=== PATIENT | male | born 2005 | race Two or more races ===

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

== ENCOUNTER 2024-08-06 14:31 | Emergency (ER) | payer SELFPAY ==
--- NOTE | ~2024-08-06 | XR_ITS ---
EXAMINATION: XR chest 1V portable 08/06/2024 14:53 INDICATION: Left chest pain PROCEDURE: AP portable chest COMPARISON: No prior studies for comparison. FINDINGS: The lungs are clear. The cardiomediastinal silhouette is within normal limits. There are no pleural effusions. There is no pneumothorax suspected. IMPRESSION: 1: NO ACUTE CARDIOPULMONARY DISEASE. Reviewed, dictated and finalized at location B.
[2024-08-06 14:34] VITALS: BP 127/80; PULSE 69; RESP 18; TEMP 36.8; O2SAT 96
--- NOTE | 2024-08-06 14:35 | ED_ITS ---
HPI - Arrhythmia/Palpitations General Chief Complaint: Arrhythmia/Palpitations Stated Complaint: palpatations Time Seen by Provider: 08/06/24 14:35 Source: patient Mode of arrival: ambulatory Limitations: no limitations History of Present Illness HPI narrative: 19-year-old male, nonsmoker with no past medical history presents to the ED with a 4 week history of -- left-sided chest pain which radiates to his neck, jaw, bilateral shoulders. The pain is not related to activity. It comes on spontaneously and resolved spontaneously. This is associated with -- shortness of breath no fever or chills. MD complaint: palpitations Onset (ago): week(s) ( Four weeks) Duration: intermittent Severity: moderate Context: occurred during rest Associated symptoms: denies other symptoms, chest pain and shortness of breath Related Data Home Medications ?Medication ?Instructions ?Recorded ?Confirmed ?Last Taken ?Type methylphenidate HCl 27 mg 27 mg PO DAILY 11/15/20 08/06/24 Unknown History tablet,extended release 24 hr famotidine 20 mg tablet mg 08/06/24 Unknown History Allergies Allergy/AdvReac Type Severity Reaction Status Date / Time lidocaine AdvReac Mild Rash Verified 08/06/24 14:34 Review of Systems 2 Review of Systems: All systems reviewed & are unremarkable except as noted in HPI and below Constitutional: Constitutional: Reports as per HPI and Reports no additional constitutional complaints Eyes: Eyes: Reports as per HPI and Reports no additional eye complaints ENT: Reports system reviewed and no additional complaints, except as documented and Reports as per HPI Cardiovascular: Cardiovascular: Reports as per HPI, Reports no additional cardiovascular complaints, Reports chest pain and Reports rapid heart rate Respiratory: Respiratory: Reports as per HPI, Reports no additional respiratory complaints and Reports dyspnea Gastrointestinal: Gastrointestinal: Reports as per HPI and Reports no additional gastrointestinal complaints Genitourinary: Genitourinary: Reports no additional male genitourinary complaints and Reports as per HPI Musculoskeletal: Musculoskeletal: Reports no additional musculoskeletal complaints and Reports as per HPI Integumentary/Breasts: Skin/Breast: Reports system reviewed and no additional complaints, except as docu and Reports as per HPI Neurologic: Reports system reviewed and no additional complaints, except as documented and Reports as per HPI Psychiatric: Psychiatric: Reports no additional psychiatric complaints and Reports as per HPI Endocrine: Endocrine: Reports no additional endocrine complaints and Reports as per HPI Hematologic/Lymphatic: Hematologic/Lymphatic: Reports no additional hematologic/lymphatic complaints and Reports as per HPI Allergic/Immunologic: Allergic/Immunologic: Reports no additional allergic/immunologic complaints and Reports as per HPI Exam 2 Narrative: vitals are stable Const: General: healthy appearing Orientation/consciousness: patient oriented x3 Limitations: no limitations HENMT: Head: normal to inspection Ears: external ears normal F alem/Nose/Sinus: Normal external nose present Face and sinus: normal facial exam Mouth: Yes Normal oral and palatal mucosa present Throat: posterior oropharynx normal Eyes: Conjunctivae: conjunctivae normal Pupils: Equal, round and reactive pupils present EOM: EOMs intact bilaterally Direct Ophthalmoscopy: no photophobia Neck: Neck: normal visual inspection, no lymphadenopathy and no meningeal signs Chest: Chest palpation & inspection: normal inspection of the chest Other: tenderness over the 3/4 costochondral junction Resp: Effort & Inspection: normal respiratory effort Auscultation: clear to auscultation bilaterally Cardio: Rate: regular rate Rhythm: regular rhythm GI: GI Palp: Yes Soft to palpation Auscultation: normal bowel sounds : General: Yes no CVA tenderness Back/Spine/Pelvis: Back: no CVA tenderness Skin: General skin exam: normal color Rashes: no rashes Wounds: no wounds Neuro: General: patient oriented x3, moves all extremities, no meningeal signs, no focal motor deficits and CN's II-XI intact bilaterally Speech: n ormal speech Extrem: General: normal to inspection and no clubbing, cyanosis or edema Psych: Mental Status: mental status grossly normal Affect: normal affect Attitude: cooperative Course Course Emergency Course: left chest pain-- unprovoked. Clinical examination revealed tenderness over the left 3/[address]ochond[address]. EKG revealed ST elevation in anteroseptal leads without any T-wave changes-- Early repolarization syndrome. Patient had normal D-dimer and a normal chest x-ray. Costochondritis anxiety Vital Signs Vital signs: Vital Signs Temperature 36.8 C 08/06/24 14:34 Pulse Rate 69 08/06/24 14:34 Respiratory Rate 18 08/06/24 14:34 Blood Pressure 127/80 08/06/24 14:34 Pulse Oximetry 96 08/06/24 14:34 Oxygen Delivery Room Air 08/06/24 14:34 Temperature 36.8 C 08/06/24 14:34 Pulse Rate 69 08/06/24 14:34 Respiratory Rate 18 08/06/24 14:34 Blood Pressure 127/80 08/06/24 14:34 Pulse Oximetry 96 08/06/24 14:34 Oxygen Delivery Room Air 08/06/24 14:34 MDM - Arrhythmia/Palpitations MDM Narrative Medical decision making narrative: costochondritis anxiety Differential Diagnosis Differential diagnosis: Likely palpitations and sinus tachycardia Lab Data Attestation: I reviewed the patient's lab results. 08/06/24 14:54 08/06/24 14:54 Labs: Lab Results 08/06/24 Range/Units 14:54 WBC 6.2 (4.8-10.8) K/mm3 RBC 5.09 (4.70-6.10) M/mm3 Hgb 14.7 (14.0-18.0) g/dL Hct 42.4 (40.0-54.0) % MCV 83.3 (78.0-102.0) fL MCH 28.9 (27.0-31.0) pg MCHC 34.7 (32-36) g/dL RDW 12.2 (11.6-14.4) % Plt Count 270 (150-420) K/mm3 MPV 9.3 (8.7-11.0) fl Immature Gran % (Auto) 0.2 H (0.0-0.0) % Neut % (Auto) 62.8 (50.0-70.0) % Lymph % (Auto) 20.7 (18.0-42.0) % [place] % (Auto) 10.5 (2.0-11.0) % Eos % (Auto) 5.0 (1.0-6.0) % Baso % (Auto) 0.8 (0.0-1.0) % Lymph # (Auto) 1.28 (1.10-4.50) K/mm3 [place] # (Auto) 0.65 (0.10-0.90) K/mm3 Eos # (Auto) 0.31 (0.02-0.50) K/mm3 Baso # (Auto) 0.05 (0.00-0.10) K/mm3 Abs Immat Gran (auto) 0.01 H (0.00-0.00) K/mm3 Absolute Neuts (auto) 3.87 (1.70-7.20) K/mm3 Absolute Nucleated RBC 0.00 (0.00-0.00) K/mm3 Nucleated RBC % 0.0 (0-0.0) % D-Dimer 0.19 (0.19-0.50) mg/L Sodium 139 (137-145) mmol/L Potassium 3.8 (3.4-5.0) mmol/L Chloride 106 (98-107) mmol/L Carbon Dioxide 24 (22-30) mmol/L Anion Gap 9 (4-12) mmol/L BUN 6 L (9-20) mg/dL Creatinine 0.77 (0.7-1.3) mg/dL Estim Creat Clear Calc 156 ml/min Estimated GFR > 60 (59 - ) Glucose 78 (65-110) mg/dL Calculated Osmolality 284 L (285-295) mOsm/kg Lactic Acid Pending Calcium 9.1 (8.4-10.2) mg/dL Total Bilirubin 0.8 (0.2-1.3) mg/dL AST 26 (17-59) U/L ALT 18 (6-50) U/L Alkaline Phosphatase 50 (38-126) U/L Troponin I < 0.012 (0.000-0.034) ng/mL Total Protein 6.9 (6.3-8.2) g/dL Albumin 5.0 (3.5-5.1) g/dL ECG Data EKG #1: ECG completion date: 08/06/24 ECG completion time: 14:57 Interpretation: Normal sinus rhythm. Normal axis. ST elevation in anteroseptal leads possibly secondary to early repolarization syndrome Discharge Plan Discharge Clinical Impression: Anxiety, Costochondritis Patient Disposition: Home Condition: Stable Instructions: Antibiotic Form, Costochondritis (ED), Anxiety (ED) Patient Language: Lithuanian Prescriptions: No Action famotidine 20 mg tablet methylphenidate HCl 27 mg tablet extended release 24hr 27 mg PO DAILY fluconazole 150 mg tablet 150 mg PO WEEKLY Qty: 2 1RF Rx Instructions: as a single dose Follow-up/Referrals: UNKNOWN,DOCTOR [Non-Staff] - Time of Disposition: 15:49
--- NOTE | 2024-08-06 14:45 | ECG_ITS ---
Test Date: 2024-08-06 14:57:22 Measurements Intervals [place] Rate: 69 P: 36 OK: 143 QRS: 31 QRSD: 101 T: 41 QT: 355 QTc: 383 Interpretive Statements SINUS RHYTHM WITH SINUS ARRHYTHMIA INCOMPLETE RIGHT BUNDLE BRANCH BLOCK ST ELEVATION IN DIFFUSE LEADS, PROBABLY EARLY REPOLARIZATION BASELINE ARTIFACT- I, II, III BORDERLINE ECG No previous ECG available for comparison Electronically Signed On 08-06-2024 15:21:28 CDT by Melvin Bates D.O.
[2024-08-06 14:59] LABS: Basophils Absolute Auto 0.05 K/mm3 (0.00-0.10); Basophils Percent Auto 0.8 % (0.0-1.0); Eosinophils Absolute Auto 0.31 K/mm3 (0.02-0.50); Hematocrit 42.4 % (40.0-54.0); Hemoglobin 14.7 g/dL (14.0-18.0); Immature Granulocyte Absolute 0.01 K/mm3 (0.00-0.00); Immature Granulocyte Percent A 0.2 % (0.0-0.0); Lymphocytes Absolute Auto 1.28 K/mm3 (1.10-4.50); Lymphocytes Percent Auto 20.7 % (18.0-42.0); Mean Corpuscular HGB Conc 34.7 g/dL (32-36); Mean Corpuscular Hemoglobin 28.9 pg (27.0-31.0); Mean Corpuscular Volume 83.3 fL (78.0-102.0); Mean Platelet Volume 9.3 fl (8.7-11.0); Monocytes Absolute Auto 0.65 K/mm3 (0.10-0.90); Monocytes Percent Auto 10.5 % (2.0-11.0); Neutrophils Absolute Auto 3.87 K/mm3 (1.70-7.20); Neutrophils Percent Auto 62.8 % (50.0-70.0); Platelet Count Result 270 K/mm3 (150-420); Red Blood Count 5.09 M/mm3 (4.70-6.10); Red Cell Distribution Width 12.2 % (11.6-14.4); White Blood Count 6.2 K/mm3 (4.8-10.8)
[2024-08-06 15:13] LABS: D Dimer 0.19 mg/L (0.19-0.50)
[2024-08-06 15:32] LABS: Alanine Aminotransferase 18 U/L (6-50); Alkaline Phosphatase 50 U/L (38-126); Anion Gap 9 mmol/L (4-12); Aspartate Amino Transferase 26 U/L (17-59); Bilirubin,Total 0.8 mg/dL (0.2-1.3); Blood Urea Nitrogen 6 mg/dL (9-20); Calcium 9.1 mg/dL (8.4-10.2); Carbon Dioxide 24 mmol/L (22-30); Chloride 106 mmol/L (98-107); Estimated CRCL calculation 156 ml/min; Estimated Glomerular Filt Rate > 60; Glucose 78 mg/dL (65-110); Osmolality Calculated 284 mOsm/kg (285-295); Potassium 3.8 mmol/L (3.4-5.0); Sodium 139 mmol/L (137-145); Total Protein 6.9 g/dL (6.3-8.2)
[2024-08-06 15:44] LABS: Troponin I < 0.012 ng/mL (0.000-0.034)
[2024-08-06 16:04] VITALS: BP 120/70; PULSE 63; RESP 16; TEMP 37.6; O2SAT 96
--- NOTE | 2024-08-06 16:04 | PC.NURSE ---
Gel splint applied to right ankle
--- OUTSIDE RECORDS SUMMARY | 2024-08-06 17:15 | XMS_ITS | Referral Summary ---
Author Organization [place] [id number] [facility] Address [address] [place] [address] Care Team Providers Care Agency Legal Counsel Name Role Phone Unknown, Notinfile Primary Care Provider Unavail able Encounters Date Type Department Care Team Description 07/31/2024 Documentation [facility] Social Work [address] [place] [id number] Isela Rubi 07/29/2024 2:39 PM CDT - 07/29/2024 3:47 PM CDT Emergency [address] [address] Cervical radiculopathy (Primary Dx); Left arm pain; Paresthesia Discharge Disposition: Discharge to home or self care 07/26/2024 2:48 PM CDT - 07/26/2024 3:39 PM CDT Emergency [address] [address] Musculoskeletal pain (Primary Dx) Discharge Disposition: Discharge to home or self care 07/23/2024 11:16 AM CDT - 07/23/2024 4:24 PM CDT Emergency [address] [address] Gastroesophageal reflux disease without esophagitis (Primary Dx); Chest wall pain Discharge Disposition: Discharge to home or self care 07/17/2024 7:50 PM CDT - 07/17/2024 8:12 PM CDT Emergency [address] [address] Upper abdominal pain (Primary Dx) Discharge Disposition: Discharge to home or self care 07/11/2024 1:43 PM CDT - 07/11/2024 2:19 PM CDT Emergency [address] [address] Ariel Hugo MD Chest pain, unspecified type (Primary Dx) Discharge Disposition: Discharge to home or self care from Last 3 Months Allergies No known active allergies Medications methylphenidat e LA (RITALIN LA) 20 mg 24 hr capsule Take 20 mg by mouth every morning Active aluminum-magne sium hydroxide-olivier thicone (MAALOX MAX) suspension 400-400-40 mg/5 mL Take 10 mL by mouth every 6 (six) hours as needed for indigestion or heartburn 355 mL 07/18/19 25 Active famotidine (PEPCID) 20 mg tablet Take 1 tablet (20 mg total) by mouth 2 (two) times a day 30 tablet 07/24/19 25 Active celecoxib (CeleBREX) 100 mg capsule Take 1 capsule (100 mg total) by mouth 2 (two) times a day 60 capsule 07/27/19 25 025 Active celecoxib (CeleBREX) 100 mg capsule Take 1 capsule (100 mg total) by mouth 2 (two) times a day 60 capsule 07/27/19 25 025 Discontinued Active Problems Problem Noted Date Diagnosed Date Warts 09/25/2011 Overview (03/18/2019): onset summer 2010; 2 lesions, limited to forehead Social History Tobacco Use Types Packs/Day Years Used Date Smoking Tobacco: Never Alcohol Use Standard Drinks/Week Comments Never 0 (1 standard drink = 0.6 oz pur e alcohol) AUDIT-C Answer Date Recorded Frequency of Alcohol Consumption Never 04/21/2019 Average Number of Drinks Not on file 020 Frequency of Binge Drinking Not on file 03/30 Personal Safety Answer Date Recorded Have you ever been in or are you currently in a harmful physical or emotional relationship or is someone making you feel afraid or unsafe? Denies 07/29/2024 Sex and Gender Information Value Date Recorded Sex Assigned at Not on file Legal Sex Male 8:48 AM CDT Gender Identity Not on file Sexual Orientation Not on file Last Filed Vital Signs Vital Sign Reading Time Taken Comments Blood Pressure 130/62 07/29/2024 3:43 PM CDT Pulse 60 07/29/2024 3:43 PM CDT Temperature 36.9 C (98.4 F) 07/29/2024 11:41 AM CDT Respiratory Rate 16 07/29/2024 3:43 PM CDT Oxygen Saturation 100% 07/29/2024 3:43 PM CDT Inhaled Oxygen Concentration - - Weight 104.8 kg (231 lb) 07/29/2024 11:54 AM CDT Height 175.3 cm (5' 9) 07/17/2023 1:27 PM CDT Body Mass Index 34.11 07/17/2023 1:27 PM CDT Plan of Treatment Not on file Procedures Procedure Name Priority Date/Time Associated Diagnosis Comments XR SPINE CERVICAL COMPLETE 4 OR 5 VW ED 07/29/2024 2:49 PM CDT EGFR STAT 07/29/2024 1:49 PM CDT DIFFERENTIAL AUTO STAT 07/29/2024 1:4 9 PM CDT COMPREHENSIVE METABOLIC PANEL STAT 07/29/2024 1:49 PM CDT CBC WITH AUTO DIFFERENTIAL STAT 07/29/2024 1:49 PM CDT XR SHOULDER LEFT 2 OR MORE VIEWS ED 07/29/2024 12:44 PM CDT ECG 12-LEAD STAT 07/26/2024 2:10 PM CDT EGFR STAT 07/26/2024 2:08 PM CDT DIFFERENTIAL AUTO STAT 07/26/2024 2:0 8 PM CDT COMPREHENSIVE METABOLIC PANEL STAT 07/26/2024 2:08 PM CDT CBC WITH AUTO DIFFERENTIAL STAT 07/26/2024 2:08 PM CDT TROPONIN T HIGH-SENSITIVITY 2-HOUR Timed 07/23/2024 2:31 PM CDT XR CHEST 1 VIEW ED 07/23/2024 12:44 PM CDT EGFR STAT 07/23/2024 12:28 PM CDT DIFFERENTIAL AUTO STAT 07/23/2024 12: 28 PM CDT LIPASE STAT 07/23/2024 12:28 PM CDT TROPONIN T HIGH-SENSITIVITY SERIES (BASELINE, 2HR, 4HR, 6HR) STAT 07/23/2024 12:28 PM CDT CBC WITH AUTO DIFFERENTIAL STAT 07/23/2024 12:28 PM CDT COMPREHENSIVE METABOLIC PANEL STAT 07/23/2024 12:28 PM CDT ECG 12-LEAD STAT 07/23/2024 12:22 PM CDT TROPONIN T HIGH-SENSITIVITY 2-HOUR Timed 07/17/2024 7:27 PM CDT XR CHEST 1 VIEW ED 07/17/2024 5:31 PM CDT EGFR STAT 07/17/2024 4:49 PM CDT DIFFERENTIAL AUTO STAT 07/17/2024 4:4 9 PM CDT TROPONIN T HIGH-SENSITIVITY SERIES (BASELINE, 2HR, 4HR, 6HR) STAT 07/17/2024 4:49 PM CDT COMPREHENSIVE METABOLIC PANEL STAT 07/17/2024 4:49 PM CDT CBC WITH AUTO DIFFERENTIAL STAT 07/17/2024 4:49 PM CDT ECG 12-LEAD STAT 07/17/2024 4:40 PM CDT XR CHEST 1 VIEW ED 07/11/2024 12:27 PM CDT EGFR STAT 07/11/2024 12:15 PM CDT DIFFERENTIAL AUTO STAT 07/11/2024 12: 15 PM CDT TROPONIN T HIGH-SENSITIVITY SERIES (BASELINE, 2HR, 4HR, 6HR) STAT 07/11/2024 12:15 PM CDT COMPREHENSIVE METABOLIC PANEL STAT 07/11/2024 12:15 PM CDT CBC WITH AUTO DIFFERENTIAL STAT 07/11/2024 12:15 PM CDT ECG 12-LEAD STAT 07/11/2024 12:02 PM CDT from Last 3 Months Results * XR Spine Cervical Complete 4 or 5 Views (07/29/2024 2:49 PM CDT) Anatomical Region Laterality Modality Spine N/A Computed Radiogr aphy 07/29/2024 3:18 PM CDT Narrative 07/29/2024 3:20 PM CDT EXAM DESCRIPTION: XR SPINE CERVICAL COMPLETE 4 OR 5 VW REASON FOR STUDY: neck pain Pt with neck pain t hat radiates to a lump under the skin on his anterior Chest wall, denies trauma TECHNIQUE: 5 radiographic view(s) of the cervical spine. COMPARISON: 07/17/2023 FINDINGS: ALIGNMENT: Anatomic. VERTEBRAE: Vertebral bodies of normal height. DISCS: Disc height well-maintained. SOFT TISSUES: Within normal limits. IMPRESSION: No acute spinal abnormality. THIS IS AN ELECTRONICALLY VERIFIED FINAL REPORT 07/29/2024 3:20 PM - Electronically signed by Shawn Dickey M.D. MM T: Report ID: [id number] Reading Location: [id number] Procedure Note Shawn Dickey MD - 07/29/2024 EXAM DESCRIPTION: XR SPINE CERVICAL COMPLETE 4 OR 5 VW REASON FOR STUDY: neck pain Pt with neck pain t hat radiates to a lump under the skin on his anterior Chest wall, denies trauma TECHNIQUE: 5 radiographic view(s) of the cervical spine. COMPARISON: 07/17/2023 FINDINGS: ALIGNMENT: Anatomic. VERTEBRAE: Vertebral bodies of normal height. DISCS: Disc height well-maintained. SOFT TISSUES: Within normal limits. IMPRESSION: No acute spinal abnormality. THIS IS AN ELECTRONICALLY VERIFIED FINAL REPORT 07/29/2024 3:20 PM - Electronically signed by Shawn Dickey M.D. MM T: Report ID: [id number] Reading Location: [id number] Maxim [facility] IMG XR PROCEDURES Final Resu lt * eGFR (07/29/2024 1:49 PM CDT) eGFR >90 >=60 mL/min/1. 73 m2 Comment: Interpretive Data Reference Interval Normal >/= 90 mL/min/1.73m2 Mildly decreased* 60 - 89 mL/min/1.73m2 Mildly to moderately decreased 45 - 59 mL/min/1.73m2 Moderately to severely decreased 30 - 44 mL/min/1.73m2 Severely decreased 15 - 29 mL/min/1.73m2 Kidney Failure < 15 mL/min/1.73m2 *Relative to young adult level Estimated glomerular filtration rate is determined by the 2020 CKD-EPI equation recommended by the National Kidney Foundation (A Unifying Approach to GFR Estimation: Recommendations of the NKF-ASK Task Force on Reassessing the Inclusion of Race in Diagnosing Kidney Disease, JASN 202). The CKD-EPI equation should not be used for patients with unstable renal function and has not been validated in children and those over 70. Current interpretive data was last reviewed 2020. Blood 07/29/2024 1:49 PM CDT 07/29/2024 1:53 PM CDT us Bert ASCENCIO LAB BLOOD ORDERABL ES Final Result [facility] [address] [facility] Department [place] [address] * Differential, auto (07/29/2024 1:49 PM CDT) Neutrophil abs 4.26 1.50 - 6.50 K/cumm Imm gran abs 0.01 0.00 - 0.10 K/cumm [facility] Lymphocyte abs 1.56 0.80 - 3.30 K/cumm [facility] Monocyte abs 0.63 0.20 - 0.80 K/cumm [facility] Eosinophil abs 0.16 0.00 - 0.50 K/cumm [facility] Basophil abs 0.02 0.00 - 0.10 K/cumm [facility] Neutrophil pct 64.1 % [facility] Comment: Interpretive Data Percent cell count reference ranges are not reported, since discordance with absolute values may lead to misinterpretation of CBC data. Current Interpretive Data was last revised on 2017. Imm gran pct 0.2 % [facility] Comment: Interpretive Data Percent cell count reference ranges are not reported, since discordance with absolute values may lead to misinterpretation of CBC data. Current Interpretive Data was last revised on 2017. Lymphocyte pct 23.5 % [facility] Comment: Interpretive Data Percent cell count reference ranges are not reported, since discordance with absolute values may lead to misinterpretation of CBC data. Current Interpretive Data was last revised on 2017. Monocyte pct 9.5 % [facility] Comment: Interpretive Data Percent cell count reference ranges are not reported, since discordance with absolute values may lead to misinterpretation of CBC data. Current Interpretive Data was last revised on 2017. Eosinophil pct 2.4 % [facility] Comment: Interpretive Data Percent cell count reference ranges are not reported, since discordance with absolute values may lead to misinterpretation of CBC data. Current Interpretive Data was last revised on 2017. Basophil pct 0.3 % [facility] Comment: Interpretive Data Percent cell count reference ranges are not reported, since discordance with absolute values may lead to misinterpretation of CBC data. Current Interpretive Data was last revised on 2017. Blood 07/29/2024 1:49 PM CDT 07/29/2024 1:53 PM CDT [facility]LOOD ORDERABL ES Final Result Performing Organization Address City/[facility]/ZIP Co de Phone Number [facility] [address] [place] [employer] [place] [address] * CBC with auto differential (07/29/2024 1:49 PM CDT) WBC 6.64 3.80 - 9.90 K/cumm Hgb 14.5 13.0 - 17.5 g/dL [facility] Hct 41.5 38.9 - 50.3 % [facility] Plt 296 150 - 400 K/cumm [facility] MPV 9.4 9.1 - 12.3 fL [facility] RBC 4.86 4.30 - 5.80 M/cumm [facility] MCV 85.4 81.3 - 96.4 fL [facility] MCH 29.8 27.1 - 33.3 pg [facility] MCHC 34.9 32.3 - 35.7 g/dL [facility] RDW CV 12.5 11.1 - 14.9 % [facility] RDW SD 38.7 35.7 - 48.1 fL [facility] NRBC abs 0.00 0.00 - 0.01 K/cumm [facility] Blood 07/29/2024 1:49 PM CDT 07/29/2024 1:53 PM CDT [facility] Tolulade Adesida PA LAB BLOOD ORDERABL ES Final Result Performing Organization Address [facility] Co de Phone Number [facility] [place] [employer] [place] [address] * Comprehensive metabolic panel (07/29/2024 1:49 PM CDT) Sodium 137 135 - 145 mmol/L Potassium, pl 4.2 3.3 - 4.9 mmol/L [facility] Chloride 103 97 - 110 mmol/L [facility] CO2 23 22 - 32 mmol/L [facility] Anion gap 11 2 - 15 mmol/L [facility] BUN 7 6 - 25 mg/dL [facility] Creatinine 0.89 0.80 - 1.30 mg/dL [facility] Glucose 87 70 - 199 mg/dL [facility] Comment: Interpretive Data Fasting glucose >/= 126 mg/dl is diagnostic for diabetes. Fasting is defined as no caloric intake for at least 8 hours. Fasting glucose between 100 mg/dl to 125 mg/dl is diagnostic of prediabetes. In a patient with classic symptoms of hyperglycemia or hyperglycemic crisis, a random glucose >/= 200 mg/dl is diagnostic for diabetes. In the absence of unequivocal hyperglycemia, results should be confirmed by repeat testing. The classification and Diagnosis of Diabetes Diabetes Care 2021; 46: S19-S40. Current interpretive data was last revised 2022. Calcium 9.5 8.5 - 10.3 mg/dL [facility] Bilirubin, total 0.5 0.1 - 1.2 mg/dL [facility] Protein, pl 7.2 6.5 - 8.5 g/dL [facility] Albumin 4.8 3.5 - 5.0 g/dL [facility] Alk phos 50 40 - 130 Units/L [facility] ALT 22 7 - 55 Units/L [facility] AST 20 10 - 50 Units/L [facility] Blood 07/29/2024 1:49 PM CDT 07/29/2024 1:53 PM CDT us Bert ASCENCIO LAB BLOOD ORDERABL ES Final Result [facility] [address] [facility] Department [place] [address] * XR Shoulder Left 2 or More Views (07/29/2024 12:44 PM CDT) Anatomical Region Laterality Modality Upper Extremities, Shoulder Left Comp uted Radiography 07/29/2024 1:16 PM CDT Narrative 07/29/2024 1:18 PM CDT EXAM DESCRIPTION: XR SHOULDER LEFT 2 OR MORE VIEWS REASON FOR STUDY: Pain, Upper Extremity Injury or Trauma Pt has been seen within the ED multiple times the past couple weeks per pt with c/o intermittent VIDHI chest pain. Pt is now c/o the pain moving to my shoulder. Pt is c/o decreased strength to LUE x2 days. 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 Pt is currently denying CP or SOB. Pt friend is requesting for pt to be placed on abx for an infection. Pt is stating body aches from my feet up into my body. TECHNIQUE: 4 radiographic view(s) of the left shoulder . COMPARISON: Chest radiograph dated 07/23/2024. FINDINGS: BONES/JOINTS: There is no acute fracture, malalignment or osseous abnormality. Joint spaces are preserved. The visualized left ribs are intact. The left lung is clear. SOFT TISSUES: No focal soft tissue abnormality. IMPRESSION: No acute osseous abnormality within the left shoulder. THIS IS AN ELECTRONICALLY VERIFIED FINAL REPORT 07/29/2024 1:18 PM - Electronically signed by Juli Roca M.D. TW T: Report ID: [id number] Reading Location: [id number] Procedure Note Juli Roca MD - 07/29/2024 EXAM DESCRIPTION: XR SHOULDER LEFT 2 OR MORE VIEWS REASON FOR STUDY: Pain, Upper Extremity Injury or Trauma Pt has been seen within the ED multiple times the past couple weeks per pt with c/o intermittent VIDHI chest pain. Pt is now c/o the pain moving giancarlo shoulder. Pt is c/o decreased strength to LUE x2 days. Pt gripstrength is weakness on the L. Pt is currently denying CP or SOB. Pt friend is requesting for pt to be placed on abx for an infection. Pt is stating body aches from my feet up into my body. TECHNIQUE: 4 radiographic view(s) of the left shoulder . COMPARISON: Chest radiograph dated 07/23/2024. FINDINGS: BONES/JOINTS: There is no acute fracture, malalignment orosseous abnormality. Joint spaces are preserved. The visualized left ribs areintact. The left lung is clear. SOFT TISSUES: No focal soft tissue abnormality. IMPRESSION: No acute osseous abnormality within the left shoulder. THIS IS AN ELECTRONICALLY VERIFIED FINAL REPORT 07/29/2024 1:18 PM - Electronically signed by Juli Roca M.D. TW T: Report ID: [id number] Reading Location: [place] [address] [facility] LOPEZ IMG XR PROCEDURES Final Result * ECG 12 lead (07/26/2024 2:10 PM CDT) Ventricular Rate EKG/Min 66 BPM [facility] Atrial Rate 66 BPM [facility] ID-Interval (MSEC) 166 ms [facility] QRS-Interval (MSEC) 100 ms [facility] QT-Interval (MSEC) 370 ms [facility] QTc 387 ms [facility] P [place] 65 degrees [facility] R [place] 26 degrees [facility] T [place] 37 degrees [facility] Diagnosis Normal sinus rhythm Normal ECG When compared with ECG of 23-JUL-2024 12:22, No significant change was found Confirmed by SULTAN MOLINA M.D. ([id number]) on 07/28/2024 5:55:23 PM [facility] 07/26/2024 2:10 PM CDT 07/28/2024 5:55 PM CDT Ari Leslie MD ECG ORDERABLES Final Result [facility] * eGFR (07/26/2024 2:08 PM CDT) eGFR >90 >=60 mL/min/1. 73 m2 Comment: Interpretive Data Reference Interval Normal >/= 90 mL/min/1.73m2 Mildly decreased* 60 - 89 mL/min/1.73m2 Mildly to moderately decreased 45 - 59 mL/min/1.73m2 Moderately to severely decreased 30 - 44 mL/min/1.73m2 Severely decreased 15 - 29 mL/min/1.73m2 Kidney Failure < 15 mL/min/1.73m2 *Relative to young adult level Estimated glomerular filtration rate is determined by the 2020 CKD-EPI equation recommended by the National Kidney Foundation (A Unifying Approach to GFR Estimation: Recommendations of the NKF-ASK Task Force on Reassessing the Inclusion of Race in Diagnosing Kidney Disease, JASN 202). The CKD-EPI equation should not be used for patients with unstable renal function and has not been validated in children and those over 70. Current interpretive data was last reviewed 2020. Blood 07/26/2024 2:08 PM CDT 07/26/2024 2:10 PM CDT us Ari Leslie MD LAB BLOOD ORDERABLES Final Resul t [facility] [address] [facility] Department [place] [address] * Differential, auto (07/26/2024 2:08 PM CDT) Neutrophil abs 4.97 1.50 - 6.50 K/cumm Imm gran abs 0.02 0.00 - 0.10 K/cumm [facility] Lymphocyte abs 1.80 0.80 - 3.30 K/cumm [facility] Monocyte abs 0.65 0.20 - 0.80 K/cumm [facility] Eosinophil abs 0.14 0.00 - 0.50 K/cumm [facility] Basophil abs 0.04 0.00 - 0.10 K/cumm [facility] Neutrophil pct 65.3 % [facility] Comment: Interpretive Data Percent cell count reference ranges are not reported, since discordance with absolute values may lead to misinterpretation of CBC data. Current Interpretive Data was last revised on 2017. Imm gran pct 0.3 % [facility] Comment: Interpretive Data Percent cell count reference ranges are not reported, since discordance with absolute values may lead to misinterpretation of CBC data. Current Interpretive Data was last revised on 2017. Lymphocyte pct 23.6 % [facility] Comment: Interpretive Data Percent cell count reference ranges are not reported, since discordance with absolute values may lead to misinterpretation of CBC data. Current Interpretive Data was last revised on 2017. Monocyte pct 8.5 % [facility] Comment: Interpretive Data Percent cell count reference ranges are not reported, since discordance with absolute values may lead to misinterpretation of CBC data. Current Interpretive Data was last revised on 2017. Eosinophil pct 1.8 % [facility] Comment: Interpretive Data Percent cell count reference ranges are not reported, since discordance with absolute values may lead to misinterpretation of CBC data. Current Interpretive Data was last revised on 2017. Basophil pct 0.5 % [facility] Comment: Interpretive Data Percent cell count reference ranges are not reported, since discordance with absolute values may lead to misinterpretation of CBC data. Current Interpretive Data was last revised on 2017. Blood 07/26/2024 2:08 PM CDT 07/26/2024 2:10 PM CDT us Ari Leslie MD LAB BLOOD ORDERABLES Final Resul t [place] [id number] [facility] Department [place] [address] * (ABNORMAL) CBC with auto differential (07/26/2024 2:08 PM CDT) WBC 7.62 3.80 - 9.90 K/cumm Hgb 14.0 13.0 - 17.5 g/dL [facility] Hct 39.5 38.9 - 50.3 % [facility] Plt 304 150 - 400 K/cumm [facility] MPV 9.0(L) 9.1 - 12.3 fL [facility] RBC 4.84 4.30 - 5.80 M/cumm [facility] MCV 81.6 81.3 - 96.4 fL [facility] MCH 28.9 27.1 - 33.3 pg [facility] MCHC 35.4 32.3 - 35.7 g/dL [facility] RDW CV 12.2 11.1 - 14.9 % [facility] RDW SD 35.8 35.7 - 48.1 fL [facility] NRBC abs 0.00 0.00 - 0.01 K/cumm [facility] Blood Venous blood specimen / Unknown 07/26/2024 2:08 PM CDT 07/26/2024 2:10 PM CDT us Ari Leslie MD LAB BLOOD ORDERABLES Final Resul t [facility] [address] [facility] Department [place] [address] * Comprehensive metabolic panel (07/26/2024 2:08 PM CDT) Sodium 136 135 - 145 mmol/L Potassium, pl 3.6 3.3 - 4.9 mmol/L [facility] Chloride 101 97 - 110 mmol/L [facility] CO2 22 22 - 32 mmol/L [facility] Anion gap 13 2 - 15 mmol/L [facility] BUN 11 6 - 25 mg/dL [facility] Creatinine 0.88 0.80 - 1.30 mg/dL [facility] Glucose 106 70 - 199 mg/dL [facility] Comment: Interpretive Data Fasting glucose >/= 126 mg/dl is diagnostic for diabetes. Fasting is defined as no caloric intake for at least 8 hours. Fasting glucose between 100 mg/dl to 125 mg/dl is diagnostic of prediabetes. In a patient with classic symptoms of hyperglycemia or hyperglycemic crisis, a random glucose >/= 200 mg/dl is diagnostic for diabetes. In the absence of unequivocal hyperglycemia, results should be confirmed by repeat testing. The classification and Diagnosis of Diabetes Diabetes Care 202; 46: S19-S40. Current interpretive data was last revised 2022. Calcium 9.6 8.5 - 10.3 mg/dL [facility] Bilirubin, total 0.5 0.1 - 1.2 mg/dL [facility] Protein, pl 7.2 6.5 - 8.5 g/dL [facility] Albumin 4.7 3.5 - 5.0 g/dL [facility] Alk phos 46 40 - 130 Units/L [facility] ALT 19 7 - 55 Units/L [facility] AST 19 10 - 50 Units/L [facility] Blood 07/26/2024 2:08 PM CDT 07/26/2024 2:10 PM CDT us Ari Leslie MD LAB BLOOD ORDERABLES Final Resul t Performing Organization Address [facility] Co de Phone Number BABAK [facility]0 [facility] [place] [employer] [place] [address] * Troponin T high-sensitivity 2-hour (07/23/2024 2:31 PM CDT) Trop T hs See Comment <=22 Comment: Credited due to hemolysis; if immediate recollection is needed, enter an order for a standalone troponin. Do not reorder the troponin series. Informed RN: [id number] 07/23/24 at 1503 by [id number] Interpretive Data For further hscTnT resources including the diagnostic algorithm and an aid in interpretation, copy and paste this link: [email or web address].testcatalog.org/[email or web address] Current Interpretive Data last revised 2020. Trop T hs interp See Comment [facility] Comment:Credited due to hemo lysis; if immediate recollection is needed, enter an order for a standalone troponin. Do not reorder the troponin series. Informed RN: [id number] 07/23/24 at 1503 by [id number] Blood 07/23/2024 2:31 PM CDT 07/23/2024 2:32 PM CDT Jonelle [facility] LAB BLOOD ORDERABLES Final Re sult Performing Organization Address [facility] Co de Phone Number [place] [id number] [facility] [place] [employer] [place] [address] * XR Chest 1 Vw Portable (07/23/2024 12:44 PM CDT) Anatomical Region Laterality Modality Body, Chest N/A Computed Radiogr aphy 07/23/2024 2:54 PM CDT Narrative 07/23/2024 2:56 PM CDT EXAM DESCRIPTION: XR CHEST 1 VIEW REASON FOR STUDY: pain Pt states he has a lump on his lt anterior chest wall that popped up about 3 days ago TECHNIQUE: Single frontal radiographic view(s) of the chest. COMPARISON: 07/17/2024 FINDINGS: The heart, mediastinum, and pulmonary vasculature are grossly stable. There is no definite evidence of a pneumothorax. There is no definite evidence of a focal consolidation or pleural effusion. The osseous structures are acutely grossly stable. IMPRESSION: No acute cardiopulmonary abnormality. THIS IS AN ELECTRONICALLY VERIFIED FINAL REPORT 07/23/2024 2:56 PM - Electronically signed by Jossie Jimenez D.O. PS T: Report ID: [id number] Reading Location: [id number] Procedure Note Jossie Jimenez, DO - 07/23/2024 EXAM DESCRIPTION: XR CHEST 1 VIEW REASON FOR STUDY: pain Pt states he has a lump on his lt anterior chest wall that popped up about3 days ago TECHNIQUE: Single frontal radiographic view(s) of the chest. COMPARISON: 07/17/2024 FINDINGS: The heart, mediastinum, and pulmonary vasculature are grossly stable. There is no definite evidence of a pneumothorax. There is no definite evidence of a focal consolidation or pleural effusion. The osseous structures are acutely grossly stable. IMPRESSION: No acute cardiopulmonary abnormality. THIS IS AN ELECTRONICALLY VERIFIED FINAL REPORT 07/23/2024 2:56 PM - Electronically signed by Jossie Jimenez D.O. PS T: Report ID: [id number] Reading Location: [id number] us Jonelle ASCENCIO IMG XR PROCEDURES Final Resul t * Troponin T high-sensitivity series (baseline, 2hr, 4hr, 6hr) (07/23/2024 12:28 PM CDT) Trop T hs 15 <=22 ng/L Comment: Interpretive Data For further hscTnT resources including the diagnostic algorithm and an aid in interpretation, copy and paste this link: https://nrl.testcatalog.org/show/hsTrop Current Interpretive Data last revised 2020. Blood 07/23/2024 12:2 8 PM CDT 07/23/2024 12:32 PM CDT us Jonelle [facility] LAB BLOOD ORDERABLES Final Re sult Performing Organization Address [facility] Co de Phone Number BABAK [address] [address] * eGFR (07/23/2024 12:28 PM CDT) Pathologist [facility] eGFR >90 >=60 mL/min/1. 73 m2 Comment: Interpretive Data Reference Interval Normal >/= 90 mL/min/1.73m2 Mildly decreased* 60 - 89 mL/min/1.73m2 Mildly to moderately decreased 45 - 59 mL/min/1.73m2 Moderately to severely decreased 30 - 44 mL/min/1.73m2 Severely decreased 15 - 29 mL/min/1.73m2 Kidney Failure < 15 mL/min/1.73m2 *Relative to young adult level Estimated glomerular filtration rate is determined by the 2020 CKD-EPI equation recommended by the National Kidney Foundation (A Unifying Approach to GFR Estimation: Recommendations of the NKF-ASK Task Force on Reassessing the Inclusion of Race in Diagnosing Kidney Disease, JASN 2020). The CKD-EPI equation should not be used for patients with unstable renal function and has not been validated in children and those over 70. Current interpretive data was last reviewed 2020. Blood 07/23/2024 12:2 8 PM CDT 07/23/2024 12:32 PM CDT Jonelle [facility] LAB BLOOD ORDERABLES Final Re sult Performing Organization Address [facility] Co de Phone Number BABAK [address] [place] [employer] [place] [address] * (ABNORMAL) Differential, auto (07/23/2024 12:28 PM CDT) Pathologist [facility] Neutrophil abs 4.96 1.50 - 6.50 K/cumm Imm gran abs 0.01 0.00 - 0.10 K/cumm [facility] Lymphocyte abs 1.78 0.80 - 3.30 K/cumm [facility] Monocyte abs 0.85(H) 0.20 - 0.80 K/cumm [facility] Eosinophil abs 0.29 0.00 - 0.50 K/cumm [facility] Basophil abs 0.03 0.00 - 0.10 K/cumm [facility] Neutrophil pct 62.6 % [facility] Comment: Interpretive Data Percent cell count reference ranges are not reported, since discordance with absolute values may lead to misinterpretation of CBC data. Current Interpretive Data was last revised on 2017. Imm gran pct 0.1 % [facility] Comment: Interpretive Data Percent cell count reference ranges are not reported, since discordance with absolute values may lead to misinterpretation of CBC data. Current Interpretive Data was last revised on 2017. Lymphocyte pct 22.5 % [facility] Comment: Interpretive Data Percent cell count reference ranges are not reported, since discordance with absolute values may lead to misinterpretation of CBC data. Current Interpretive Data was last revised on 2017. Monocyte pct 10.7 % [facility] Comment: Interpretive Data Percent cell count reference ranges are not reported, since discordance with absolute values may lead to misinterpretation of CBC data. Current Interpretive Data was last revised on 2017. Eosinophil pct 3.7 % [facility] Comment: Interpretive Data Percent cell count reference ranges are not reported, since discordance with absolute values may lead to misinterpretation of CBC data. Current Interpretive Data was last revised on 2017. Basophil pct 0.4 % [facility] Comment: Interpretive Data Percent cell count reference ranges are not reported, since discordance with absolute values may lead to misinterpretation of CBC data. Current Interpretive Data was last revised on 2017. Blood 07/23/2024 12:2 8 PM CDT 07/23/2024 12:32 PM CDT us Jonelle [facility] LAB BLOOD ORDERABLES Final Re sult BABAK TREVIZO [address] [facility] Department [place] [address] * CBC with auto differential (07/23/2024 12:28 PM CDT) WBC 7.92 3.80 - 9.90 K/cumm Hgb 14.6 13.0 - 17.5 g/dL [facility] Hct 42.7 38.9 - 50.3 % [facility] Plt 292 150 - 400 K/cumm [facility] MPV 9.3 9.1 - 12.3 fL [facility] RBC 4.95 4.30 - 5.80 M/cumm [facility] MCV 86.3 81.3 - 96.4 fL [facility] MCH 29.5 27.1 - 33.3 pg [facility] MCHC 34.2 32.3 - 35.7 g/dL [facility] RDW CV 12.4 11.1 - 14.9 % [facility] RDW SD 38.9 35.7 - 48.1 fL [facility] NRBC abs 0.00 0.00 - 0.01 K/cumm [facility] Blood 07/23/2024 12:2 8 PM CDT 07/23/2024 12:32 PM CDT Jonelle Arnel PA LAB BLOOD ORDERABLES Final Re sult Performing Organization Address [facility] Co de Phone Number [address] [place] [employer] [address] * Lipase (07/23/2024 12:28 PM CDT) [facility] Lipase 18 10 - 99 Units/L Blood 07/23/2024 12:2 8 PM CDT 07/23/2024 12:32 PM CDT Jonelle Arnel Taggo LAB BLOOD ORDERABLES Final Re sult Performing Organization Address [facility] Co de Phone Number [address] [employer] [place] [address] * Comprehensive metabolic panel (07/23/2024 12:28 PM CDT) [facility] Sodium 138 135 - 145 mmol/L Potassium, pl 4.2 3.3 - 4.9 mmol/L [facility] Chloride 104 97 - 110 mmol/L [facility] CO2 24 22 - 32 mmol/L [facility] Anion gap 10 2 - 15 mmol/L [facility] BUN 8 6 - 25 mg/dL [facility] Creatinine 0.80 0.80 - 1.30 mg/dL [facility] Glucose 82 70 - 199 mg/dL [facility] Comment: Interpretive Data Fasting glucose >/= 126 mg/dl is diagnostic for diabetes. Fasting is defined as no caloric intake for at least 8 hours. Fasting glucose between 100 mg/dl to 125 mg/dl is diagnostic of prediabetes. In a patient with classic symptoms of hyperglycemia or hyperglycemic crisis, a random glucose >/= 200 mg/dl is diagnostic for diabetes. In the absence of unequivocal hyperglycemia, results should be confirmed by repeat testing. The classification and Diagnosis of Diabetes Diabetes Care 2021; 46: S19-S40. Current interpretive data was last revised 2022. Calcium 9.1 8.5 - 10.3 mg/dL [facility] Bilirubin, total 0.6 0.1 - 1.2 mg/dL [facility] Protein, pl 6.7 6.5 - 8.5 g/dL [facility] Albumin 4.4 3.5 - 5.0 g/dL [facility] Alk phos 44 40 - 130 Units/L [facility] ALT 16 7 - 55 Units/L [facility] AST 20 10 - 50 Units/L [facility] Blood 07/23/2024 12:2 8 PM CDT 07/23/2024 12:32 PM CDT Jonelle [facility] LAB BLOOD ORDERABLES Final Re sult [facility] [address] [facility] Department [place] [address] * ECG 12 lead (07/23/2024 12:22 PM CDT) Pathologist [facility] Ventricular Rate EKG/Min 55 BPM [facility] Atrial Rate 55 BPM [facility] ID-Interval (MSEC) 164 ms [facility] QRS-Interval (MSEC) 98 ms [facility] QT-Interval (MSEC) 384 ms [facility] QTc 367 ms [facility] P [place] 33 degrees [facility] R [place] 38 degrees [facility] T [place] 49 degrees [facility] Diagnosis Sinus bradycardia Cannot rule out Anterior infarct , age undetermined Abnormal ECG When compared with ECG of 17-JUL-2024 16:40, Minimal criteria for Anterior infarct noted Confirmed by ABDI MANDUJANO M.D. ([id number]) on 07/23/2024 10:54:40 PM [facility] 07/23/2024 12:2 2 PM CDT 07/23/2024 10:54 PM CDT Jonelle ASCENCIO ECG ORDERABLES Final Result [facility] * Troponin T high-sensitivity 2-hour (07/17/2024 7:27 PM CDT) Trop T hs 8 <=22 ng/L Comment: Interpretive Data For further hscTnT resources including the diagnostic algorithm and an aid in interpretation, copy and paste this link: https://nrl.testcatalog.org/show/hsTrop Current Interpretive Data last revised 2020. Trop T hs delta 0 ng/L BABAK Trop T hs interp Insignificant BABAK Blood 07/17/2024 7:27 PM CDT 07/17/2024 7:29 PM CDT Bert [facility] LAB BLOOD ORDERABL ES Final Result Performing Organization Address City/[facility]/ZIP Co de Phone Number [facility] [address] [facility] Department [place] [address] * XR Chest 1 Vw Portable (if patient condition/safety warrant portable) (07/17/2024 5:31 PM CDT) Anatomical Region Laterality Modality Body, Chest N/A Computed Radiogr aphy 07/17/2024 6:45 PM CDT Narrative 07/17/2024 6:45 PM CDT EXAM DESCRIPTION: XR CHEST 1 VIEW REASON FOR STUDY: chest pain Pt states 3rd ED visit with same complaint. Pt reports intermittent VIDHI chest pain x2 weeks. Pt reports pain increases when laying flat and hard to sleep. Pt notes intake of spicy/greasy foods. Pt grand-mother administered pt Pepcid approximately 20 mins [employer] to ED. Pt is currently c/o 6/10 pain. Pt notes nobody ever gave me any meds while I was here. Pt a/ox 4. VSS. Pt appears to be in discomfort. Pt ambulatory. Pt stated was here for anxiety not to long ago this time has heartburn TECHNIQUE: Frontal radiographic view(s) of the chest. COMPARISON: 07/11/2024 FINDINGS: No consolidation, pulmonary edema, pleural effusion or pneumothorax. Heart size and mediastinal contours are normal. IMPRESSION: No acute cardiopulmonary abnormality. THIS IS AN ELECTRONICALLY VERIFIED FINAL REPORT 07/17/2024 6:45 PM - Electronically signed by Sb Acevedo M.D. AG T: Report ID: [id number] Reading Location: [id number] Procedure Note Sb Acevedo MD - 07/17/2024 EXAM DESCRIPTION: XR CHEST 1 VIEW REASON FOR STUDY: chest pain Pt states 3rd ED visit with same complaint. Pt reports intermittent VIDHI chest pain x2 weeks. Pt reports pain increases when laying flat andhard to sleep. Pt notes intake of spicy/greasy foods. Pt grand-mother administered pt Pepcid approximately 20 mins [employer] to ED. Pt is currentlyc/o 6/10 pain. Pt notes nobody ever gave me any meds while I was here.Pt a/ox 4. VSS. Pt appears to be in discomfort. Pt ambulatory. Pt statedwas here for anxiety not to long ago this time has heartburn TECHNIQUE: Frontal radiographic view(s) of the chest. COMPARISON: 07/11/2024 FINDINGS: No consolidation, pulmonary edema, pleural effusion orpneumothorax. Heart size and mediastinal contours are normal. IMPRESSION: No acute cardiopulmonary abnormality. THIS IS AN ELECTRONICALLY VERIFIED FINAL REPORT 07/17/2024 6:45 PM - Electronically signed by Sb Acevedo M.D. AG T: Report ID: [id number] Reading Location: [id number] us Adebowale Tolulade Adesida PA IMG XR PROCEDURES Final Result * Troponin T high-sensitivity series (baseline, 2hr, 4hr, 6hr) (07/17/2024 4:49 PM CDT) Pathologist [facility] Trop T hs 8 <=22 ng/L Comment: Interpretive Data For further hscTnT resources including the diagnostic algorithm and an aid in interpretation, copy and paste this link: https://nrl.testcatalog.org/show/hsTrop Current Interpretive Data last revised 2020. Blood 07/17/2024 4:49 PM CDT 07/17/2024 4:52 PM CDT Bert [facility] LAB BLOOD ORDERABL ES Final Result BABAK [facility] Department [place] [address] * eGFR (07/17/2024 4:49 PM CDT) Pathologist [facility] eGFR >90 >=60 mL/min/1. 73 m2 Comment: Interpretive Data Reference Interval Normal >/= 90 mL/min/1.73m2 Mildly decreased* 60 - 89 mL/min/1.73m2 Mildly to moderately decreased 45 - 59 mL/min/1.73m2 Moderately to severely decreased 30 - 44 mL/min/1.73m2 Severely decreased 15 - 29 mL/min/1.73m2 Kidney Failure < 15 mL/min/1.73m2 *Relative to young adult level Estimated glomerular filtration rate is determined by the 2020 CKD-EPI equation recommended by the National Kidney Foundation (A Unifying Approach to GFR Estimation: Recommendations of the NKF-ASK Task Force on Reassessing the Inclusion of Race in Diagnosing Kidney Disease, JASN 2020). The CKD-EPI equation should not be used for patients with unstable renal function and has not been validated in children and those over 70. Current interpretive data was last reviewed 2020. Blood 07/17/2024 4:49 PM CDT 07/17/2024 4:52 PM CDT us Bert [facility] LAB BLOOD ORDERABL ES Final Result [facility] [address] [facility] Department [place] [address] * Differential, auto (07/17/2024 4:49 PM CDT) Neutrophil abs 5.35 1.50 - 6.50 K/cumm Imm gran abs 0.01 0.00 - 0.10 K/cumm [facility] Lymphocyte abs 1.55 0.80 - 3.30 K/cumm [facility] Monocyte abs 0.65 0.20 - 0.80 K/cumm [facility] Eosinophil abs 0.14 0.00 - 0.50 K/cumm [facility] Basophil abs 0.03 0.00 - 0.10 K/cumm [facility] Neutrophil pct 69.2 % [facility] Comment: Interpretive Data Percent cell count reference ranges are not reported, since discordance with absolute values may lead to misinterpretation of CBC data. Current Interpretive Data was last revised on 2017. Imm gran pct 0.1 % [facility] Comment: Interpretive Data Percent cell count reference ranges are not reported, since discordance with absolute values may lead to misinterpretation of CBC data. Current Interpretive Data was last revised on 2017. Lymphocyte pct 20.1 % [facility] Comment: Interpretive Data Percent cell count reference ranges are not reported, since discordance with absolute values may lead to misinterpretation of CBC data. Current Interpretive Data was last revised on 2017. Monocyte pct 8.4 % [facility] Comment: Interpretive Data Percent cell count reference ranges are not reported, since discordance with absolute values may lead to misinterpretation of CBC data. Current Interpretive Data was last revised on 2017. Eosinophil pct 1.8 % [facility] Comment: Interpretive Data Percent cell count reference ranges are not reported, since discordance with absolute values may lead to misinterpretation of CBC data. Current Interpretive Data was last revised on 2017. Basophil pct 0.4 % [facility] Comment: Interpretive Data Percent cell count reference ranges are not reported, since discordance with absolute values may lead to misinterpretation of CBC data. Current Interpretive Data was last revised on 2017. Blood 07/17/2024 4:49 PM CDT 07/17/2024 4:52 PM CDT [facility] Tolulade Rad [facility] LAB BLOOD ORDERABL ES Final Result Performing Organization Address City/[facility]/ZIP Co de Phone Number BABAK [address] [place] [employer] [address] * CBC with auto differential (07/17/2024 4:49 PM CDT) WBC 7.73 3.80 - 9.90 K/cumm Hgb 14.6 13.0 - 17.5 g/dL [facility] Hct 41.7 38.9 - 50.3 % [facility] Plt 310 150 - 400 K/cumm [facility] MPV 9.2 9.1 - 12.3 fL [facility] RBC 5.02 4.30 - 5.80 M/cumm [facility] MCV 83.1 81.3 - 96.4 fL [facility] MCH 29.1 27.1 - 33.3 pg [facility] MCHC 35.0 32.3 - 35.7 g/dL [facility] RDW CV 12.4 11.1 - 14.9 % [facility] RDW SD 37.7 35.7 - 48.1 fL [facility] NRBC abs 0.00 0.00 - 0.01 K/cumm [facility] Blood Venous blood specimen / Unknown 07/17/2024 4:49 PM CDT 07/17/2024 4:52 PM CDT Bert Tolulade Lindseyda SONU LAB BLOOD ORDERABL ES Final Result Performing Organization Address City/[facility]/ZIP Co de Phone Number BABAK [address] [place] [employer] [place] [address] * Comprehensive metabolic panel (07/17/2024 4:49 PM CDT) Sodium 136 135 - 145 mmol/L Potassium, pl 4.1 3.3 - 4.9 mmol/L [facility] Comment:Hemolyzed; Potassium value may be falsely elevated by as much as 1.0 mmol/L. Suggest redraw and reanalysis. Chloride 102 97 - 110 mmol/L [facility] CO2 22 22 - 32 mmol/L [facility] Anion gap 12 2 - 15 mmol/L [facility] BUN 10 6 - 25 mg/dL [facility] Creatinine 0.80 0.80 - 1.30 mg/dL [facility] Glucose 91 70 - 199 mg/dL [facility] Comment: Interpretive Data Fasting glucose >/= 126 mg/dl is diagnostic for diabetes. Fasting is defined as no caloric intake for at least 8 hours. Fasting glucose between 100 mg/dl to 125 mg/dl is diagnostic of prediabetes. In a patient with classic symptoms of hyperglycemia or hyperglycemic crisis, a random glucose >/= 200 mg/dl is diagnostic for diabetes. In the absence of unequivocal hyperglycemia, results should be confirmed by repeat testing. The classification and Diagnosis of Diabetes Diabetes Care 2021; 46: S19-S40. Current interpretive data was last revised 2022. Calcium 9.9 8.5 - 10.3 mg/dL [facility] Bilirubin, total 0.6 0.1 - 1.2 mg/dL [facility] Protein, pl 7.1 6.5 - 8.5 g/dL [facility] Albumin 4.8 3.5 - 5.0 g/dL [facility] Alk phos 49 40 - 130 Units/L [facility] ALT 18 7 - 55 Units/L [facility] AST See Comment 10 - 50 [facility] Comment:Credited; Hemolyzed Specimen Blood 07/17/2024 4:49 PM CDT 07/17/2024 4:52 PM CDT us Bert ASCENCIO LAB BLOOD ORDERABL ES Final Result BABAK [address] [facility] Department [place] [address] * ECG 12 lead (07/17/2024 4:40 PM CDT) Pathologist [facility] Ventricular Rate EKG/Min 64 BPM [facility] Atrial Rate 64 BPM [facility] ID-Interval (MSEC) 160 ms [facility] QRS-Interval (MSEC) 92 ms [facility] QT-Interval (MSEC) 368 ms [facility] QTc 379 ms [facility] P [place] 66 degrees [facility] R [place] 27 degrees [facility] T [place] 34 degrees [facility] Diagnosis Normal sinus rhythm with sinus arrhythmia Normal ECG When compared with ECG of 11-JUL-2024 12:02, No significant change was found Confirmed by ZACHARY MCCULLOUGH M.D. ([id number]) on 07/18/2024 8:45:54 AM [facility] 07/17/2024 4:40 PM CDT 07/18/2024 8:45 AM CDT us Adebowdwight Merrill Adecezarda PA ECG ORDERABLES Fi nal Result [facility] * XR Chest 1 Vw Portable (07/11/2024 12:27 PM CDT) Anatomical Region Laterality Modality Body, Chest N/A Computed Radiogr aphy 07/11/2024 1:03 PM CDT Narrative 07/11/2024 1:04 PM CDT EXAM DESCRIPTION: XR CHEST 1 VIEW REASON FOR STUDY: chest pain BIBEMS for non radiating chest pain. Pt states pain started when he was thinking about something that pisses me off really bad. Pt states to having this type of pain before and was dx with anxiety. EMS gave 324mg ASA. Pt presents anxious and restless. Admits he hasn't slept in 24h. States he was unable to sleep last night. Upper left chest pain gone now per pt TECHNIQUE: Single frontal radiographic view(s) of the chest. COMPARISON: 05/28/2018 FINDINGS: The heart, mediastinum, and pulmonary vasculature are grossly stable. There is no definite evidence of a pneumothorax. There is no definite evidence of a focal consolidation or pleural effusion. The osseous structures are acutely grossly unremarkable. IMPRESSION: No acute cardiopulmonary abnormality. THIS IS AN ELECTRONICALLY VERIFIED FINAL REPORT 07/11/2024 1:04 PM - Electronically signed by Jossie Jimenez D.O. PS T: Report ID: [id number] Reading Location: [id number] Procedure Note Jimenez Jossie Gutierrez, DO - 07/11/2024 EXAM DESCRIPTION: XR CHEST 1 VIEW REASON FOR STUDY: chest pain BIBEMS for non radiating chest pain. Pt states pain started when hewas thinking about something that pisses me off really bad. Pt states tohaving this type of pain before and was dx with anxiety. EMS gave 324mg ASA. Pt presents anxious and restless. Admits he hasn't slept in 24h.States he was unable to sleep last night. Upper left chest pain gone now per pt TECHNIQUE: Single frontal radiographic view(s) of the chest. COMPARISON: 05/28/2018 FINDINGS: The heart, mediastinum, and pulmonary vasculature are grossly stable. There is no definite evidence of a pneumothorax. There is no definite evidence of a focal consolidation or pleural effusion. The osseous structures are acutely grossly unremarkable. IMPRESSION: No acute cardiopulmonary abnormality. THIS IS AN ELECTRONICALLY VERIFIED FINAL REPORT 07/11/2024 1:04 PM - Electronically signed by Jossie Jimenez D.O. PS T: Report ID: [id number] Reading Location: [id number] us Yarely ASCENCIO IMG XR PROCEDURES Final Re sult * Troponin T high-sensitivity series (baseline, 2hr, 4hr, 6hr) (07/11/2024 12:15 PM CDT) Trop T hs <6 <=22 ng/L Comment: Interpretive Data For further hscTnT resources including the diagnostic algorithm and an aid in interpretation, copy and paste this link: https://nrl.testcatalog.org/show/hsTrop Current Interpretive Data last revised 2020. Blood 07/11/2024 12:1 5 PM CDT 07/11/2024 12:17 PM CDT us Yarely ASCENCIO LAB BLOOD ORDERABLES Final Result Performing Organization Address [facility]/ZIP Co de Phone Number BABAK [address] [address] * eGFR (07/11/2024 12:15 PM CDT) [facility] eGFR >90 >=60 mL/min/1. 73 m2 Comment: Interpretive Data Reference Interval Normal >/= 90 mL/min/1.73m2 Mildly decreased* 60 - 89 mL/min/1.73m2 Mildly to moderately decreased 45 - 59 mL/min/1.73m2 Moderately to severely decreased 30 - 44 mL/min/1.73m2 Severely decreased 15 - 29 mL/min/1.73m2 Kidney Failure < 15 mL/min/1.73m2 *Relative to young adult level Estimated glomerular filtration rate is determined by the 2020 CKD-EPI equation recommended by the National [employer] (A Unifying Approach to GFR Estimation: Recommendations of the NKF-ASK Task Force on Reassessing the Inclusion of Race in Diagnosing Kidney Disease, JASN 2020). The CKD-EPI equation should not be used for patients with unstable renal function and has not been validated in children and those over 70. Current interpretive data was last reviewed 2020. Blood 07/11/2024 12:1 5 PM CDT 07/11/2024 12:17 PM CDT Yarely ASCENCIO LAB BLOOD ORDERABLES Final Result Performing Organization Address [facility] Co de Phone Number BABAK [address] [place] [employer] [place] [address] * Differential, auto (07/11/2024 12:15 PM CDT) [facility] Neutrophil abs 4.29 1.50 - 6.50 K/cumm Imm gran abs 0.01 0.00 - 0.10 K/cumm [facility] Lymphocyte abs 1.89 0.80 - 3.30 K/cumm [facility] Monocyte abs 0.80 0.20 - 0.80 K/cumm [facility] Eosinophil abs 0.19 0.00 - 0.50 K/cumm [facility] Basophil abs 0.03 0.00 - 0.10 K/cumm [facility] Neutrophil pct 59.6 % [facility] Comment: Interpretive Data Percent cell count reference ranges are not reported, since discordance with absolute values may lead to misinterpretation of CBC data. Current Interpretive Data was last revised on 2017. Imm gran pct 0.1 % [facility] Comment: Interpretive Data Percent cell count reference ranges are not reported, since discordance with absolute values may lead to misinterpretation of CBC data. Current Interpretive Data was last revised on 2017. Lymphocyte pct 26.2 % [facility] Comment: Interpretive Data Percent cell count reference ranges are not reported, since discordance with absolute values may lead to misinterpretation of CBC data. Current Interpretive Data was last revised on 2017. Monocyte pct 11.1 % [facility] Comment: Interpretive Data Percent cell count reference ranges are not reported, since discordance with absolute values may lead to misinterpretation of CBC data. Current Interpretive Data was last revised on 2017. Eosinophil pct 2.6 % [facility] Comment: Interpretive Data Percent cell count reference ranges are not reported, since discordance with absolute values may lead to misinterpretation of CBC data. Current Interpretive Data was last revised on 2017. Basophil pct 0.4 % [facility] Comment: Interpretive Data Percent cell count reference ranges are not reported, since discordance with absolute values may lead to misinterpretation of CBC data. Current Interpretive Data was last revised on 2017. Blood 07/11/2024 12:1 5 PM CDT 07/11/2024 12:17 PM CDT Yarely ASCENCIO LAB BLOOD ORDERABLES Final Result [facility] [address] [facility] Department [place] [address] * (ABNORMAL) CBC with auto differential (07/11/2024 12:15 PM CDT) WBC 7.21 3.80 - 9.90 K/cumm Hgb 14.3 13.0 - 17.5 g/dL [facility] Hct 42.0 38.9 - 50.3 % [facility] Plt 286 150 - 400 K/cumm [facility] MPV 9.0(L) 9.1 - 12.3 fL [facility] RBC 4.96 4.30 - 5.80 M/cumm [facility] MCV 84.7 81.3 - 96.4 fL [facility] MCH 28.8 27.1 - 33.3 pg [facility] MCHC 34.0 32.3 - 35.7 g/dL [facility] RDW CV 12.5 11.1 - 14.9 % [facility] RDW SD 38.1 35.7 - 48.1 fL [facility] NRBC abs 0.00 0.00 - 0.01 K/cumm [facility] Blood 07/11/2024 12:1 5 PM CDT 07/11/2024 12:17 PM CDT Yarely ASCENCIO LAB BLOOD ORDERABLES Final Result [facility] [address] [facility] Department [place] [address] * Comprehensive metabolic panel (07/11/2024 12:15 PM CDT) Sodium 140 135 - 145 mmol/L Potassium, pl 3.8 3.3 - 4.9 mmol/L [facility] Comment:Hemolyzed; Potassium value may be falsely elevated by as much as 1.0 mmol/L. Suggest redraw and reanalysis. Chloride 102 97 - 110 mmol/L [facility] CO2 26 22 - 32 mmol/L [facility] Anion gap 12 2 - 15 mmol/L [facility] BUN 12 6 - 25 mg/dL [facility] Creatinine 0.85 0.80 - 1.30 mg/dL [facility] Glucose 97 70 - 199 mg/dL [facility] Comment: Interpretive Data Fasting glucose >/= 126 mg/dl is diagnostic for diabetes. Fasting is defined as no caloric intake for at least 8 hours. Fasting glucose between 100 mg/dl to 125 mg/dl is diagnostic of prediabetes. In a patient with classic symptoms of hyperglycemia or hyperglycemic crisis, a random glucose >/= 200 mg/dl is diagnostic for diabetes. In the absence of unequivocal hyperglycemia, results should be confirmed by repeat testing. The classification and Diagnosis of Diabetes Diabetes Care 2021; 46: S19-S40. Current interpretive data was last revised 2022. Calcium 9.8 8.5 - 10.3 mg/dL [facility] Bilirubin, total 0.2 0.1 - 1.2 mg/dL [facility] Protein, pl 7.2 6.5 - 8.5 g/dL [facility] Albumin 4.8 3.5 - 5.0 g/dL [facility] Alk phos 51 40 - 130 Units/L [facility] ALT 20 7 - 55 Units/L [facility] AST See Comment 10 - 50 [facility] Comment:Credited; Hemolyzed Specimen Blood 07/11/2024 12:1 5 PM CDT 07/11/2024 12:17 PM CDT Yarely ASCENCIO LAB BLOOD ORDERABLES Final Result Performing Organization Address City/[facility] Co de Phone Number BABAK [address] [facility] Department [place] [address] * ECG 12 lead (07/11/2024 12:02 PM CDT) Ventricular Rate EKG/Min 75 BPM [facility] Atrial Rate 75 BPM [facility] ID-Interval (MSEC) 166 ms [facility] QRS-Interval (MSEC) 96 ms [facility] QT-Interval (MSEC) 340 ms [facility] QTc 379 ms [facility] P [place] 61 degrees [facility] R [place] 12 degrees [facility] T [place] 25 degrees [facility] Diagnosis Normal sinus rhythm Normal ECG No previous ECGs available Confirmed by ABDI MANDUJANO M.D. ([id number]) on 07/11/2024 6:04:25 PM [facility] 07/11/2024 12:0 2 PM CDT 07/11/2024 6:04 PM CDT Yarely ASCENCIO ECG ORDERABLES Final Resu lt [facility] from Last 3 Months Insurance [employer] Care Teams Agency Legal Counsel Relationship Specialty Start Date End Date Unknown, Notinfile PCP - General 07/17/23
--- OUTSIDE RECORDS SUMMARY | 2024-08-06 17:15 | XMS_ITS | Clinical Summary ---
Author Organization [place] [id number] [facility] Address [address] [place] [address] Care Team Providers Care Superintendent Overhead Distribution Name Role Phone Unknown, Notinfile Primary Care Provider Unavail able Allergies No known active allergies Medications methylphenidat [...] summer 2010; 2 lesions, limited to forehead Encounters Date Type Department Care Team Description 07/31/2024 Documentation [facility] Social Work [address] [place] [address] [place] [address] Isela Barnes 07/29/2024 2:39 PM CDT - 07/29/2024 3:47 PM CDT Emergency [address] [address] Cervical radiculopathy (Primary Dx); Left arm pain; Paresthesia Discharge Disposition: Discharge to home or self care 07/26/2024 2:48 PM CDT - 07/26/2024 3:39 PM CDT [address] [address] Musculoskeletal pain (Primary Dx) Discharge Disposition: Discharge to home or self care 07/23/2024 11:16 AM CDT - 07/23/2024 4:24 PM CDT [address] [address] Gastroesophageal reflux disease without esophagitis (Primary Dx); Chest wall pain Discharge Disposition: Discharge to home or self care 07/17/2024 7:50 PM CDT - 07/17/2024 8:12 PM CDT [address] [address] Upper abdominal pain (Primary Dx) Discharge Disposition: Discharge to home or self care 07/11/2024 1:43 PM CDT - 07/11/2024 2:19 PM CDT [address] [address] Ariel Hugo MD Chest pain, unspecified type (Primary Dx) Discharge Disposition: Discharge to home or self care from Last 3 Months Social History Tobacco Use Types Packs/Day Years [...] on file Sexual Orientation Not on file Obstetrics History Last Filed Vital Signs Vital Sign Reading [...] 07/17/2023 1:27 PM CDT Plan of Treatment Health Maintenance Due Date Last Done Comments Depression Screening 2003 Hepatitis C Screening 2003 Regular Well Visit/Exam 18-64 05/22/2021 Covid-19 Vaccine (3 - 2023-2 5 season) 2023 08/19/2020, 07/29/2020 Influenza Vaccine (Season Ended) 2024 01/02/2022, 01/17/2021, 01/19/2020, Additional history exists DTaP/Tdap/Td Vaccine (7 - Td or Tdap) 12/22/2024 12/22/2014, 05/31/2007, 12/26/2004, Additional history exists Pneumococcal vaccine <65 Completed 005, 2003, 2003, Additional history exists Varicella Vaccines Completed 05/31/2007, 08/08/2004 Hepatitis B Screening Completed 12/22/2014 , 2003, 2003, Additional history exists HPV Vaccines Completed 12/01/2015, 12/22/2014 Meningococcal Vaccine Completed 05/27/2019, 015 Meningococcal B Vaccine Completed 06/14/2020, 05/26 Procedures Procedure Name Priority Date/Time Associated Diagnosis [...] PM - Electronically signed by Shawn Dickey M.D., MM T: Report ID: [id number] Reading Location: [id number] Procedure Note Shawn Dickey MD - 07/29/2024 [...] PM - Electronically signed by Shawn Dickey M.D., MM T: Report ID: [id number] Reading Location: [id number] us Maxim ASCENCIO IMG XR PROCEDURES Final Resu lt * eGFR (07/29/2024 1:49 PM CDT) Pathologist [facility] eGFR >90 >=60 mL/min/1. 73 m2 Comment: [...] ASCENCIO LAB BLOOD ORDERABL ES Final Result [facility] [address] [facility] Department [place] [address] * Differential, auto (07/29/2024 1:49 PM CDT) [facility] Neutrophil abs 4.26 1.50 - 6.50 K/cumm Imm gran abs 0.01 0.00 - 0.10 K/cumm [facility] Lymphocyte abs 1.56 0.80 - 3.30 K/cumm [facility] Monocyte abs 0.63 0.20 - 0.80 K/cumm [facility] Eosinophil abs 0.16 0.00 - 0.50 K/cumm [facility] Basophil abs 0.02 0.00 - 0.10 K/cumm [facility] Neutrophil pct 64.1 % [facility] Comment: Interpretive Data Percent cell count reference ranges are not reported, since discordance with absolute values may lead to misinterpretation of CBC data. Current Interpretive Data was last revised on 2017. Imm gran pct 0.2 % [facility] Comment: Interpretive Data Percent cell count reference ranges are not reported, since discordance with absolute values may lead to misinterpretation of CBC data. Current Interpretive Data was last revised on 2017. Lymphocyte pct 23.5 % [facility] Comment: Interpretive Data Percent cell count reference ranges are not reported, since discordance with absolute values may lead to misinterpretation of CBC data. Current Interpretive Data was last revised on 2017. Monocyte pct 9.5 % [facility] Comment: Interpretive Data Percent cell count reference ranges are not reported, since discordance with absolute values may lead to misinterpretation of CBC data. Current Interpretive Data was last revised on 2017. Eosinophil pct 2.4 % [facility] Comment: Interpretive Data Percent cell count reference ranges are not reported, since discordance with absolute values may lead to misinterpretation of CBC data. Current Interpretive Data was last revised on 2017. Basophil pct 0.3 % [facility] Comment: Interpretive Data Percent cell count reference ranges are not reported, since discordance with absolute values may lead to misinterpretation of CBC data. Current Interpretive Data was last revised on 2017. Blood 07/29/2024 1:49 PM CDT 07/29/2024 1:53 PM CDT us Bert [facility] LAB BLOOD ORDERABL ES Final Result [facility] [address] [facility] Department of Laboratories [place], [place] [id number] * CBC with auto differential (07/29/2024 1:49 PM CDT) WBC 6.64 3.80 - 9.90 K/cumm Hgb 14.5 13.0 - 17.5 g/dL [facility] Hct 41.5 38.9 - 50.3 % [facility] Plt 296 150 - 400 K/cumm [facility] MPV 9.4 9.1 - 12.[address] [facility] RBC 4.86 4.30 - 5.80 M/cumm [facility] MCV 85.4 81.3 - 96.[address] [facility] MCH 29.8 27.1 - 33.[address] [facility] MCHC 34.9 32.3 - 35.7 g/dL [facility] RDW CV 12.5 11.1 - 14.9 % [facility] RDW SD 38.7 35.7 - 48.[address] [facility] NRBC abs 0.00 0.00 - 0.01 K/cumm [facility] Blood 07/29/2024 1:49 PM CDT 07/29/2024 1:53 PM CDT Bert [facility] LAB BLOOD ORDERABL ES Final Result [facility] [address] [facility] Department [place] [address] * Comprehensive metabolic panel (07/29/2024 1:49 PM CDT) Sodium 137 135 - 145 mmol/L Potassium, pl 4.2 3.3 - 4.9 mmol/L [facility] Chloride 103 97 - 110 mmol/L [facility] CO2 23 22 - 32 mmol/L [facility] Anion gap 11 2 - 15 mmol/L [facility] BUN 7 6 - 25 mg/dL [facility] Creatinine 0.89 0.80 - 1.30 mg/dL [facility] Glucose 87 70 - 199 mg/dL [facility] Comment: Interpretive Data Fasting glucose >/= [...] 2022. Calcium 9.5 8.5 - 10.3 mg/dL [facility] Bilirubin, total 0.5 0.1 - 1.2 mg/dL [facility] Protein, pl 7.2 6.5 - 8.5 g/dL [facility] Albumin 4.8 3.5 - 5.0 g/dL [facility] Alk phos 50 40 - 130 Units/L [facility] ALT 22 7 - 55 Units/L [facility] AST 20 10 - 50 Units/L [facility] Blood 07/29/2024 1:49 PM CDT 07/29/2024 1:53 PM CDT us Bert [facility] LAB BLOOD ORDERABL ES Final Result [facility] [address] [facility] Department [place] [address] * XR Shoulder Left 2 or More [...] decreased strength to LUE x2 days. 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 Pt [...] 07/29/2024 1:18 PM - Electronically signed by Julinadia Roca M.D. TW T: Report ID: [id number] Reading Location: [id number] Procedure Note Juli Roca MD - 07/29/2024 [...] Juli Roca M.D. TW T: Report ID: [id number] Reading Location: [id number] us Rehab Marcell LOPEZ IMG XR PROCEDURES Final Result * ECG 12 lead (07/26/2024 2:10 PM CDT) Ventricular Rate EKG/Min 66 BPM [facility] Atrial Rate 66 BPM [facility] TN-Interval (MSEC) 166 ms [facility] QRS-Interval (MSEC) 100 ms [facility] QT-Interval (MSEC) 370 ms [facility] QTc 387 ms [facility] P [place] 65 degrees [facility] R [place] 26 degrees [facility] T [place] 37 degrees [facility] Diagnosis Normal sinus rhythm Normal ECG When compared with ECG of 23-JUL-2024 12:22, No significant change was found Confirmed by SULTAN MOLINA M.D. ([id number]) on 07/28/2024 5:55:23 PM [facility] 07/26/2024 2:10 PM CDT 07/28/2024 5:55 PM CDT us Ari Leslie MD ECG ORDERABLES Final Result [facility] * eGFR (07/26/2024 2:08 PM CDT) eGFR [...] LAB BLOOD ORDERABLES Final Resul t [facility] [address] [facility] Department [place] [address] * Differential, auto (07/26/2024 2:08 PM CDT) Neutrophil abs 4.97 1.50 - 6.50 K/cumm Imm gran abs 0.02 0.00 - 0.10 K/cumm [facility] Lymphocyte abs 1.80 0.80 - 3.30 K/cumm [facility] Monocyte abs 0.65 0.20 - 0.80 K/cumm [facility] Eosinophil abs 0.14 0.00 - 0.50 K/cumm [facility] Basophil abs 0.04 0.00 - 0.10 K/cumm [facility] Neutrophil pct 65.3 % [facility] Comment: Interpretive Data Percent cell count reference ranges are not reported, since discordance with absolute values may lead to misinterpretation of CBC data. Current Interpretive Data was last revised on 2017. Imm gran pct 0.3 % [facility] Comment: Interpretive Data Percent cell count reference ranges are not reported, since discordance with absolute values may lead to misinterpretation of CBC data. Current Interpretive Data was last revised on 2017. Lymphocyte pct 23.6 % [facility] Comment: Interpretive Data Percent cell count reference ranges are not reported, since discordance with absolute values may lead to misinterpretation of CBC data. Current Interpretive Data was last revised on 2017. Monocyte pct 8.5 % [facility] Comment: Interpretive Data Percent cell count reference ranges are not reported, since discordance with absolute values may lead to misinterpretation of CBC data. Current Interpretive Data was last revised on 2017. Eosinophil pct 1.8 % [facility] Comment: Interpretive Data Percent cell count reference ranges are not reported, since discordance with absolute values may lead to misinterpretation of CBC data. Current Interpretive Data was last revised on 2017. Basophil pct 0.5 % [facility] Comment: Interpretive Data Percent cell count reference ranges are not reported, since discordance with absolute values may lead to misinterpretation of CBC data. Current Interpretive Data was last revised on 2017. Blood 07/26/2024 2:08 PM CDT 07/26/2024 2:10 PM CDT us Ari Leslie MD LAB BLOOD ORDERABLES Final Resul t [facility] [address] [facility] Department [place] [address] * (ABNORMAL) CBC with auto differential (07/26/2024 2:08 PM CDT) [facility] WBC 7.62 3.80 - 9.90 K/cumm Hgb 14.0 13.0 - 17.5 g/dL [facility] Hct 39.5 38.9 - 50.3 % [facility] Plt 304 150 - 400 K/cumm [facility] MPV 9.0(L) 9.1 - 12.[address] [facility] RBC 4.84 4.30 - 5.80 M/cumm [facility] MCV 81.6 81.3 - 96.[address] [facility] MCH 28.9 27.1 - 33.[address] [facility] MCHC 35.4 32.3 - 35.7 g/dL [facility] RDW CV 12.2 11.1 - 14.9 % [facility] RDW SD 35.8 35.7 - 48.[address] [facility] NRBC abs 0.00 0.00 - 0.01 K/cumm [facility] Blood Venous blood specimen / Unknown 07/26/2024 2:08 PM CDT 07/26/2024 2:10 PM CDT us Ari Leslie MD LAB BLOOD ORDERABLES Final Resul t [facility] [address] [facility] Department [place] [address] * Comprehensive metabolic panel (07/26/2024 2:08 PM CDT) [facility] Sodium 136 135 - 145 mmol/L Potassium, pl 3.6 3.3 - 4.9 mmol/L [facility] Chloride 101 97 - 110 mmol/L [facility] CO2 22 22 - 32 mmol/L [facility] Anion gap 13 2 - 15 mmol/L [facility] BUN 11 6 - 25 mg/dL [facility] Creatinine 0.88 0.80 - 1.30 mg/dL [facility] Glucose 106 70 - 199 mg/dL [facility] Comment: Interpretive Data Fasting glucose >/= [...] 2022. Calcium 9.6 8.5 - 10.3 mg/dL [facility] Bilirubin, total 0.5 0.1 - 1.2 mg/dL [facility] Protein, pl 7.2 6.5 - 8.5 g/dL [facility] Albumin 4.7 3.5 - 5.0 g/dL [facility] Alk phos 46 40 - 130 Units/L [facility] ALT 19 7 - 55 Units/L [facility] AST 19 10 - 50 Units/L [facility] Blood 07/26/2024 2:08 PM CDT 07/26/2024 2:10 PM CDT us Ari Leslie MD LAB BLOOD ORDERABLES Final Resul t [facility] [address] [facility] Department [place] [address] * Troponin T high-sensitivity 2-hour (07/23/2024 2:31 PM CDT) Trop T hs See Comment <=22 Comment: Credited due to hemolysis; if immediate recollection is needed, enter an order for a standalone troponin. Do not reorder the troponin series. Informed RN: LAMBERTO 07/23/24 at 1503 by [id number] Interpretive Data For further hscTnT resources including the diagnostic algorithm and an aid in interpretation, copy and paste this link: https://nrl.testcatalog.org/show/hsTrop Current Interpretive Data last revised 2020. Trop T hs interp See Comment [facility]ZO Comment:Credited due to hemo lysis; if immediate recollection is needed, enter an order for a standalone troponin. Do not reorder the troponin series. Informed RN: LAMBERTO 07/23/24 at 1503 by [id number] Blood 07/23/2024 2:31 PM CDT 07/23/2024 2:32 PM CDT us Jonelle ASC[facility]IO LAB BLOOD ORDERABLES Final Re sult [facility] [address] [facility] Department [place] [address] * XR Chest 1 Vw Portable (07/23/2024 [...] Jossie Jimenez D.O. PS T: Report ID: [id number] Reading Location: [id number] Procedure Note Jossie Jimenez, - 07/23/2024 EXAM DESCRIPTION: XR CHEST 1 [...] 2:56 PM - Electronically signed by Jossie SAMANO T: Report ID: [id number] Reading Location: [place] [address] Jonelle [facility] IMG XR PROCEDURES Final Resul [...] ASCENCIO LAB BLOOD ORDERABLES Final Re sult [facility] [address] [facility] Department [place] [address] * eGFR (07/23/2024 12:28 PM CDT) eGFR >90 >=60 mL/min/1. 73 [...] ASCENCIO LAB BLOOD ORDERABLES Final Re sult [facility] [address] [facility] Department [place] [address] * (ABNORMAL) Differential, auto (07/23/2024 12:28 PM CDT) Pathologist [facility] Neutrophil abs 4.96 1.50 - 6.50 K/cumm Imm gran abs 0.01 0.00 - 0.10 K/cumm [facility] Lymphocyte abs 1.78 0.80 - 3.30 K/cumm [facility] Monocyte abs 0.85(H) 0.20 - 0.80 K/cumm [facility] Eosinophil abs 0.29 0.00 - 0.50 K/cumm [facility] Basophil abs 0.03 0.00 - 0.10 K/cumm [facility] Neutrophil pct 62.6 % [facility] Comment: Interpretive Data Percent cell count reference ranges are not reported, since discordance with absolute values may lead to misinterpretation of CBC data. Current Interpretive Data was last revised on 2017. Imm gran pct 0.1 % [facility] Comment: Interpretive Data Percent cell count reference ranges are not reported, since discordance with absolute values may lead to misinterpretation of CBC data. Current Interpretive Data was last revised on 2017. Lymphocyte pct 22.5 % [facility] Comment: Interpretive Data Percent cell count reference ranges are not reported, since discordance with absolute values may lead to misinterpretation of CBC data. Current Interpretive Data was last revised on 2017. Monocyte pct 10.7 % [facility] Comment: Interpretive Data Percent cell count reference ranges are not reported, since discordance with absolute values may lead to misinterpretation of CBC data. Current Interpretive Data was last revised on 2017. Eosinophil pct 3.7 % [facility] Comment: Interpretive Data Percent cell count reference ranges are not reported, since discordance with absolute values may lead to misinterpretation of CBC data. Current Interpretive Data was last revised on 2017. Basophil pct 0.4 % [facility] Comment: Interpretive Data Percent cell count reference ranges are not reported, since discordance with absolute values may lead to misinterpretation of CBC data. Current Interpretive Data was last revised on 2017. Blood 07/23/2024 12:2 8 PM CDT 07/23/2024 12:32 PM CDT Jonelle [facility]IO LAB BLOOD ORDERABLES Final Re sult [facility] [address] [facility] Department [place] [address] * CBC with auto differential (07/23/2024 12:28 PM CDT) WBC 7.92 3.80 - 9.90 K/cumm Hgb 14.6 13.0 - 17.5 g/dL [facility] Hct 42.7 38.9 - 50.3 % [facility] Plt 292 150 - 400 K/cumm [facility] MPV 9.3 9.1 - 12.[address] [facility] RBC 4.95 4.30 - 5.80 M/cumm [facility] MCV 86.3 81.3 - 96.[address] [facility] MCH 29.5 27.1 - 33.[address] [facility] MCHC 34.2 32.3 - 35.7 g/dL [facility] RDW CV 12.4 11.1 - 14.9 % [facility] RDW SD 38.9 35.7 - 48.[address] [facility] NRBC abs 0.00 0.00 - 0.01 K/cumm [facility] Blood 07/23/2024 12:2 8 PM CDT 07/23/2024 12:32 PM CDT Jonelle ASCENCIO LAB BLOOD ORDERABLES Final Re sult Performing Organization Address [facility]/ZIP Co de Phone Number [facility] [address] [place] [address] * Lipase (07/23/2024 12:28 PM CDT) Pathologist [facility] Lipase 18 10 - 99 Units/L Blood 07/23/2024 12:2 8 PM CDT 07/23/2024 12:32 PM CDT Jonelle ASCENCIO LAB BLOOD ORDERABLES Final Re sult Performing Organization Address [facility] Co de Phone Number [facility] [address] [place] [address] * Comprehensive metabolic panel (07/23/2024 12:28 PM CDT) [facility] Sodium 138 135 - 145 mmol/L Potassium, pl 4.2 3.3 - 4.9 mmol/L [facility] Chloride 104 97 - 110 mmol/L [facility] CO2 24 22 - 32 mmol/L [facility] Anion gap 10 2 - 15 mmol/L [facility] BUN 8 6 - 25 mg/dL [facility] Creatinine 0.80 0.80 - 1.30 mg/dL [facility] Glucose 82 70 - 199 mg/dL [facility] Comment: Interpretive Data Fasting glucose >/= [...] 2022. Calcium 9.1 8.5 - 10.3 mg/dL [facility] Bilirubin, total 0.6 0.1 - 1.2 mg/dL [facility] Protein, pl 6.7 6.5 - 8.5 g/dL [facility] Albumin 4.4 3.5 - 5.0 g/dL [facility] Alk phos 44 40 - 130 Units/L [facility] ALT 16 7 - 55 Units/L [facility] AST 20 10 - 50 Units/L [facility] Blood 07/23/2024 12:2 8 PM CDT 07/23/2024 12:32 PM CDT Jonelle ASCENCIO LAB BLOOD ORDERABLES Final Re sult Performing Organization Address City/[facility]/ZIP Co de Phone Number [facility] [address] [facility] Department [place] [address] * ECG 12 lead (07/23/2024 12:22 PM CDT) Ventricular Rate EKG/Min 55 BPM [facility] Atrial Rate 55 BPM [facility] TN-Interval (MSEC) 164 ms [facility] QRS-Interval (MSEC) 98 ms [facility] QT-Interval (MSEC) 384 ms [facility] QTc 367 ms [facility] P [place] 33 degrees [facility] R [place] 38 degrees [facility] T [place] 49 degrees [facility] Diagnosis Sinus bradycardia Cannot rule out Anterior infarct , age undetermined Abnormal ECG When compared with ECG of 17-JUL-2024 16:40, Minimal criteria for Anterior infarct noted Confirmed by ABDI MANDUJANO M.D. ([id number]) on 07/23/2024 10:54:40 PM [facility] 07/23/2024 12:2 2 PM CDT 07/23/2024 10:54 PM CDT Jonelle ASCENCIO ECG ORDERABLES Final Result Performing Organization Address City/[facility]/ZIP Co de Phone Number [facility] * Troponin T high-sensitivity 2-hour (07/17/2024 7:27 [...] 7:27 PM CDT 07/17/2024 7:29 PM CDT us Lluviabowdwight Villedade Adecezarda PA LAB BLOOD ORDERABL ES Final Result [facility] [address] [facility] [place] [address] * XR Chest 1 Vw Portable (if [...] grand-mother administered pt Pepcid approximately 20 mins HAMMERER TAB to ED. Pt is currently c/o 6/10 [...] Sb Acevedo M.D. AG T: Report ID: [id number] Reading Location: [place] [address] Procedure Note Sb Acevedo MD - 07/17/2024 EXAM DESCRIPTION: XR CHEST 1 VIEW REASON FOR STUDY: chest pain Pt states 3rd ED visit with same complaint. Pt reports intermittent VIDHI chest pain x2 weeks. Pt reports pain increases when laying flat andhard to sleep. Pt notes intake of spicy/greasy foods. Pt grand-mother administered pt Pepcid approximately 20 mins HAMMERER TAB to ED. Pt is currentlyc/o 6/10 pain. [...] Sb Acevedo M.D. AG T: Report ID: [id number] Reading Location: [id number] Bert [facility] IMG XR PROCEDURES Final Result * Troponin T high-sensitivity series (baseline, 2hr, 4hr, 6hr) (07/17/2024 4:49 PM CDT) Trop T hs 8 <=22 ng/L Comment: Interpretive Data For further hscTnT resources including the diagnostic algorithm and an aid in interpretation, copy and paste this link: https://nrl.testcatalog.org/show/hsTrop Current Interpretive Data last revised 2020. Blood 07/17/2024 4:49 PM CDT 07/17/2024 4:52 PM CDT Bert ASCENCIO LAB BLOOD ORDERABL ES Final Result [facility] [address] [facility] Department [place] [address] * eGFR (07/17/2024 4:49 PM CDT) [facility] eGFR >90 >=60 mL/min/1. 73 m2 Comment: [...] ASCENCIO LAB BLOOD ORDERABL ES Final Result [facility] [address] [facility] Department [place] [address] * Differential, auto (07/17/2024 4:49 PM CDT) [facility] Neutrophil abs 5.35 1.50 - 6.50 K/cumm Imm gran abs 0.01 0.00 - 0.10 K/cumm [facility] Lymphocyte abs 1.55 0.80 - 3.30 K/cumm [facility] Monocyte abs 0.65 0.20 - 0.80 K/cumm [facility] Eosinophil abs 0.14 0.00 - 0.50 K/cumm [facility] Basophil abs 0.03 0.00 - 0.10 K/cumm [facility] Neutrophil pct 69.2 % [facility] Comment: Interpretive Data Percent cell count reference ranges are not reported, since discordance with absolute values may lead to misinterpretation of CBC data. Current Interpretive Data was last revised on 2017. Imm gran pct 0.1 % [facility] Comment: Interpretive Data Percent cell count reference ranges are not reported, since discordance with absolute values may lead to misinterpretation of CBC data. Current Interpretive Data was last revised on 2017. Lymphocyte pct 20.1 % [facility] Comment: Interpretive Data Percent cell count reference ranges are not reported, since discordance with absolute values may lead to misinterpretation of CBC data. Current Interpretive Data was last revised on 2017. Monocyte pct 8.4 % [facility] Comment: Interpretive Data Percent cell count reference ranges are not reported, since discordance with absolute values may lead to misinterpretation of CBC data. Current Interpretive Data was last revised on 2017. Eosinophil pct 1.8 % [facility] Comment: Interpretive Data Percent cell count reference ranges are not reported, since discordance with absolute values may lead to misinterpretation of CBC data. Current Interpretive Data was last revised on 2017. Basophil pct 0.4 % [facility] Comment: Interpretive Data Percent cell count reference ranges are not reported, since discordance with absolute values may lead to misinterpretation of CBC data. Current Interpretive Data was last revised on 2017. Blood 07/17/2024 4:49 PM CDT 07/17/2024 4:52 PM CDT Bert [facility] LAB BLOOD ORDERABL ES Final Result [facility] [address] [facility] Department [place] [address] * CBC with auto differential (07/17/2024 4:49 PM CDT) WBC 7.73 3.80 - 9.90 K/cumm Hgb 14.6 13.0 - 17.5 g/dL [facility] Hct 41.7 38.9 - 50.3 % [facility] Plt 310 150 - 400 K/cumm [facility] MPV 9.2 9.1 - 12.[address] [facility] RBC 5.02 4.30 - 5.80 M/cumm [facility] MCV 83.1 81.3 - 96.[address] [facility] MCH 29.1 27.1 - 33.[address] [facility] MCHC 35.0 32.3 - 35.7 g/dL [facility] RDW CV 12.4 11.1 - 14.9 % [facility] RDW SD 37.7 35.7 - 48.[address] [facility] NRBC abs 0.00 0.00 - 0.01 K/cumm [facility] Blood Venous blood specimen / Unknown 07/17/2024 4:49 PM CDT 07/17/2024 4:52 PM CDT Bert ASCENCIO LAB BLOOD ORDERABL ES Final Result [facility] [address] [facility] Department [place] [address] * Comprehensive metabolic panel (07/17/2024 4:49 PM CDT) Sodium 136 135 - 145 mmol/L Potassium, pl 4.1 3.3 - 4.9 mmol/L [facility] Comment:Hemolyzed; Potassium value may be falsely elevated by as much as 1.0 mmol/L. Suggest redraw and reanalysis. Chloride 102 97 - 110 mmol/L [facility] CO2 22 22 - 32 mmol/L [facility] Anion gap 12 2 - 15 mmol/L [facility] BUN 10 6 - 25 mg/dL [facility] Creatinine 0.80 0.80 - 1.30 mg/dL [facility] Glucose 91 70 - 199 mg/dL [facility] Comment: Interpretive Data Fasting glucose >/= [...] 2022. Calcium 9.9 8.5 - 10.3 mg/dL [facility] Bilirubin, total 0.6 0.1 - 1.2 mg/dL [facility] Protein, pl 7.1 6.5 - 8.5 g/dL [facility] Albumin 4.8 3.5 - 5.0 g/dL [facility] Alk phos 49 40 - 130 Units/L [facility] ALT 18 7 - 55 Units/L [facility] AST See Comment 10 - [address] [facility] Comment:Credited; Hemolyzed Specimen Blood 07/17/2024 4:49 PM CDT 07/17/2024 4:52 PM CDT Bert ASCENCIO LAB BLOOD ORDERABL ES Final Result [facility] [address] [facility] Department [place] [address] * ECG 12 lead (07/17/2024 4:40 PM CDT) Ventricular Rate EKG/Min 64 BPM [facility] Atrial Rate 64 BPM [facility] TN-Interval (MSEC) 160 ms [facility] QRS-Interval (MSEC) 92 ms [facility] QT-Interval (MSEC) 368 ms [facility] QTc 379 ms [facility] P [place] 66 degrees [facility] R [place] 27 degrees [facility] T [place] 34 degrees [facility] Diagnosis Normal sinus rhythm with sinus arrhythmia Normal ECG When compared with ECG of 11-JUL-2024 12:02, No significant change was found Confirmed by ZACHARY MCCULLOUGH M.D. ([id number]) on 07/18/2024 8:45:54 AM [facility] 07/17/2024 4:40 PM CDT 07/18/2024 8:45 AM CDT Bert ASCENCIO ECG ORDERABLES Fi nal Result Performing Organization Address City/[facility]/ZIP Co de Phone Number [facility] * XR Chest 1 Vw Portable (07/11/2024 [...] Jossie Jimenez D.O. PS T: Report ID: [id number] Reading Location: [id number] Procedure Note Jossie Jimenez, DO - 07/11/2024 EXAM DESCRIPTION: XR CHEST [...] 1:04 PM - Electronically signed by Jossie SAMANO T: Report ID: [id number] Reading Location: [id number] Yarely ASCENCIO IMG XR PROCEDURES Final Re [...] Yarely ASCENC[facility] LAB BLOOD ORDERABLES Final Result [facility] [address] [facility] Department [place] [address] * eGFR (07/11/2024 12:15 PM CDT) eGFR >90 >=60 mL/min/1. 73 [...] Yarely ASCENCIO LAB BLOOD ORDERABLES Final Result [facility] [address] [facility] Department [place] [address] * Differential, auto (07/11/2024 12:15 PM CDT) Neutrophil abs 4.29 1.50 - 6.50 K/cumm Imm gran abs 0.01 0.00 - 0.10 K/cumm [facility] Lymphocyte abs 1.89 0.80 - 3.30 K/cumm [facility] Monocyte abs 0.80 0.20 - 0.80 K/cumm [facility] Eosinophil abs 0.19 0.00 - 0.50 K/cumm [facility] Basophil abs 0.03 0.00 - 0.10 K/cumm [facility] Neutrophil pct 59.6 % [facility] Comment: Interpretive Data Percent cell count reference ranges are not reported, since discordance with absolute values may lead to misinterpretation of CBC data. Current Interpretive Data was last revised on 2017. Imm gran pct 0.1 % [facility] Comment: Interpretive Data Percent cell count reference ranges are not reported, since discordance with absolute values may lead to misinterpretation of CBC data. Current Interpretive Data was last revised on 2017. Lymphocyte pct 26.2 % [facility] Comment: Interpretive Data Percent cell count reference ranges are not reported, since discordance with absolute values may lead to misinterpretation of CBC data. Current Interpretive Data was last revised on 2017. Monocyte pct 11.1 % [facility] Comment: Interpretive Data Percent cell count reference ranges are not reported, since discordance with absolute values may lead to misinterpretation of CBC data. Current Interpretive Data was last revised on 2017. Eosinophil pct 2.6 % [facility] Comment: Interpretive Data Percent cell count reference ranges are not reported, since discordance with absolute values may lead to misinterpretation of CBC data. Current Interpretive Data was last revised on 2017. Basophil pct 0.4 % [facility] Comment: Interpretive Data Percent cell count reference ranges are not reported, since discordance with absolute values may lead to misinterpretation of CBC data. Current Interpretive Data was last revised on 2017. Blood 07/11/2024 12:1 5 PM CDT 07/11/2024 12:17 PM CDT Yarely ASCENCIO LAB BLOOD ORDERABLES Final Result Performing Organization Address City/[facility] Co de Phone Number [facility] [address] [facility] Department [place] [address] * (ABNORMAL) CBC with auto differential (07/11/2024 12:15 PM CDT) WBC 7.21 3.80 - 9.90 K/cumm Hgb 14.3 13.0 - 17.5 g/dL [facility] Hct 42.0 38.9 - 50.3 % [facility] Plt 286 150 - 400 K/cumm [facility] MPV 9.0(L) 9.1 - 12.[address] [facility] RBC 4.96 4.30 - 5.80 M/cumm [facility] MCV 84.7 81.3 - 96.[address] [facility] MCH 28.8 27.1 - 33.[address] [facility] MCHC 34.0 32.3 - 35.7 g/dL [facility] RDW CV 12.5 11.1 - 14.9 % [facility] RDW SD 38.1 35.7 - 48.[address] [facility] NRBC abs 0.00 0.00 - 0.01 K/cumm [facility] Blood 07/11/2024 12:1 5 PM CDT 07/11/2024 12:17 PM CDT Yarely ASCENCIO LAB BLOOD ORDERABLES Final Result Performing Organization Address City/[facility] Co de Phone Number [facility] [address] [facility] Department [place] [address] * Comprehensive metabolic panel (07/11/2024 12:15 PM CDT) Sodium 140 135 - 145 mmol/L Potassium, pl 3.8 3.3 - 4.9 mmol/L [facility] Comment:Hemolyzed; Potassium value may be falsely elevated by as much as 1.0 mmol/L. Suggest redraw and reanalysis. Chloride 102 97 - 110 mmol/L [facility] CO2 26 22 - 32 mmol/L [facility] Anion gap 12 2 - 15 mmol/L [facility] BUN 12 6 - 25 mg/dL [facility] Creatinine 0.85 0.80 - 1.30 mg/dL [facility] Glucose 97 70 - 199 mg/dL [facility] Comment: Interpretive Data Fasting glucose >/= [...] 2022. Calcium 9.8 8.5 - 10.3 mg/dL [facility] Bilirubin, total 0.2 0.1 - 1.2 mg/dL [facility] Protein, pl 7.2 6.5 - 8.5 g/dL [facility] Albumin 4.8 3.5 - 5.0 g/dL [facility] Alk phos 51 40 - 130 Units/L [facility] ALT 20 7 - 55 Units/L [facility] AST See Comment 10 - [address] [facility] Comment:Credited; Hemolyzed Specimen Blood 07/11/2024 12:1 5 PM CDT 07/11/2024 12:17 PM CDT Yarely ASCENCIO LAB BLOOD ORDERABLES Final Result Performing Organization Address [facility]/ZIP Co de Phone Number [facility] [address] [facility] Department [place] [address] * ECG 12 lead (07/11/2024 12:02 PM CDT) Ventricular Rate EKG/Min 75 BPM [facility] Atrial Rate 75 BPM [facility] TN-Interval (MSEC) 166 ms [facility] QRS-Interval (MSEC) 96 ms [facility] QT-Interval (MSEC) 340 ms [facility] QTc 379 ms [facility] P [place] 61 degrees [facility] R [place] 12 degrees [facility] T [place] 25 degrees [facility] Diagnosis Normal sinus rhythm Normal ECG No previous ECGs available Confirmed by ABDI MANDUJANO M.D. ([id number]) on 07/11/2024 6:04:25 PM [facility] 07/11/2024 12:0 2 PM CDT 07/11/2024 6:04 PM CDT Yarely ASCENCIO ECG ORDERABLES Final Resu lt Performing Organization Address City/[facility] Co de Phone Number [facility] from Last 3 Months Insurance [id number] Care Teams Superintendent Overhead Distribution Relationship Specialty Start Date End Date Unknown, Notinfile PCP - General 07/17/23
--- OUTSIDE RECORDS SUMMARY | 2024-08-06 17:47 | XMS_ITS | Referral Summary ---
Author Organization [place] [id number] [facility] Address [address] [place] [address] Care Team Providers Care Jive Developer Name Role Phone Unknown, Notinfile Primary Care Provider Unavail able Encounters Date Type Department Care Team Description 07/31/2024 Documentation [facility] Social Work [address] [place] [address] Isela Rubi 07/29/2024 2:39 PM CDT - 07/29/2024 3:47 PM CDT Emergency [address] [address] Cervical radiculopathy (Primary Dx); Left arm pain; Paresthesia Discharge Disposition: Discharge to home or self care 07/26/2024 2:48 PM CDT - 07/26/2024 3:39 PM CDT Emergency [address] [address] Musculoskeletal pain (Primary Dx) Discharge Disposition: Discharge to home or self care 07/23/2024 11:16 AM CDT - 07/23/2024 4:24 PM CDT Emergency [address] [address] Gastroesophageal reflux disease without esophagitis (Primary Dx); Chest wall pain Discharge Disposition: Discharge to home or self care 07/17/2024 7:50 PM CDT - 07/17/2024 8:12 PM CDT Emergency [address] [address] Upper abdominal pain (Primary Dx) Discharge Disposition: Discharge to home or self care 07/11/2024 1:43 PM CDT - 07/11/2024 2:19 PM CDT Emergency [address] [address] Ariel Hugo MD Chest pain, unspecified type [...] Shawn Dickey M.D. MM T: Report ID: [id number] Reading Location: [id number] Procedure Note Shawn Dickey MD - 07/29/2024 [...] Shawn Dickey M.D. MM T: Report ID: [id number] Reading Location: [id number] Maxim ASCENCIO IMG XR PROCEDURES Final Resu [...] LAB BLOOD ORDERABL ES Final Result BABAK [address] [facility] Department [place] [address] * Differential, auto (07/29/2024 1:49 PM CDT) Neutrophil abs 4.26 1.50 - 6.50 K/cumm Imm gran abs 0.01 0.00 - 0.10 K/cumm [facility] Lymphocyte abs 1.56 0.80 - 3.30 K/cumm [facility] Monocyte abs 0.63 0.20 - 0.80 K/cumm [facility] Eosinophil abs 0.16 0.00 - 0.50 K/cumm [facility] Basophil abs 0.02 0.00 - 0.10 K/cumm [facility] Neutrophil pct 64.1 % [facility] Comment: Interpretive Data Percent cell count reference ranges are not reported, since discordance with absolute values may lead to misinterpretation of CBC data. Current Interpretive Data was last revised on 2017. Imm gran pct 0.2 % [facility] Comment: Interpretive Data Percent cell count reference ranges are not reported, since discordance with absolute values may lead to misinterpretation of CBC data. Current Interpretive Data was last revised on 2017. Lymphocyte pct 23.5 % [facility] Comment: Interpretive Data Percent cell count reference ranges are not reported, since discordance with absolute values may lead to misinterpretation of CBC data. Current Interpretive Data was last revised on 2017. Monocyte pct 9.5 % [facility] Comment: Interpretive Data Percent cell count reference ranges are not reported, since discordance with absolute values may lead to misinterpretation of CBC data. Current Interpretive Data was last revised on 2017. Eosinophil pct 2.4 % [facility] Comment: Interpretive Data Percent cell count reference ranges are not reported, since discordance with absolute values may lead to misinterpretation of CBC data. Current Interpretive Data was last revised on 2017. Basophil pct 0.3 % [facility] Comment: Interpretive Data Percent cell count reference ranges are not reported, since discordance with absolute values may lead to misinterpretation of CBC data. Current Interpretive Data was last revised on 2017. Blood 07/29/2024 1:49 PM CDT 07/29/2024 1:53 PM CDT [facility] BLOOD ORDERABL ES Final Result Performing Organization Address City/[facility]/ZIP Co de Phone Number BABAK [address] [place] [address] * CBC with auto differential (07/29/2024 1:49 PM CDT) WBC 6.64 3.80 - 9.90 K/cumm Hgb 14.5 13.0 - 17.5 g/dL [facility] Hct 41.5 38.9 - 50.3 % [facility] Plt 296 150 - 400 K/cumm [facility] MPV 9.4 9.1 - 12.3 fL [facility] RBC 4.86 4.30 - 5.80 M/cumm [facility] MCV 85.4 81.3 - 96.4 fL [facility] MCH 29.8 27.1 - 33.3 pg [facility] MCHC 34.9 32.3 - 35.7 g/dL [facility] RDW CV 12.5 11.1 - 14.9 % [facility] RDW SD 38.7 35.7 - 48.1 fL [facility] NRBC abs 0.00 0.00 - 0.01 K/cumm [facility] Blood 07/29/2024 1:49 PM CDT 07/29/2024 1:[address] [facility] Tolulade Adesida PA LAB BLOOD ORDERABL ES Final Result Performing Organization Address [facility] Co de Phone Number BABAK [facility] [place] [address] * Comprehensive metabolic panel (07/29/2024 1:49 PM CDT) Sodium 137 135 - 145 mmol/L Potassium, pl 4.2 3.3 - 4.9 mmol/L [facility] Chloride 103 97 - 110 mmol/L [facility] CO2 23 22 - 32 mmol/L [facility] Anion gap 11 2 - 15 mmol/L [facility] BUN 7 6 - 25 mg/dL [facility] Creatinine 0.89 0.80 - 1.30 mg/dL [facility] Glucose 87 70 - 199 mg/dL [facility] Comment: Interpretive Data Fasting glucose >/= 126 [...] 2022. Calcium 9.5 8.5 - 10.3 mg/dL [facility] Bilirubin, total 0.5 0.1 - 1.2 mg/dL [facility] Protein, pl 7.2 6.5 - 8.5 g/dL [facility] Albumin 4.8 3.5 - 5.0 g/dL [facility] Alk phos 50 40 - 130 Units/L [facility] ALT 22 7 - 55 Units/L [facility] AST 20 10 - 50 Units/L [facility] Blood 07/29/2024 1:49 PM CDT 07/29/2024 1:53 PM CDT us Bert ASCENCIO LAB BLOOD ORDERABL ES Final Result [facility] [address] [facility] Department [place] [address] * XR Shoulder Left 2 [...] decreased strength to LUE x2 days. 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 Pt [...] Juli Roca M.D. TW T: Report ID: [id number] Reading Location: [id number] Procedure Note Juli Roca MD - 07/29/2024 [...] Juli Roca M.D. TW T: Report ID: [id number] Reading Location: [place] [address] [facility] Marcell LOPEZ IMG XR PROCEDURES Final Result * ECG 12 lead (07/26/2024 2:10 PM CDT) Ventricular Rate EKG/Min 66 BPM [facility] Atrial Rate 66 BPM [facility] DE-Interval (MSEC) 166 ms [facility] QRS-Interval (MSEC) 100 ms [facility] QT-Interval (MSEC) 370 ms [facility] QTc 387 ms [facility] P Seadrift 65 degrees [facility] R Seadrift 26 degrees [facility] T Seadrift 37 degrees [facility] Diagnosis Normal sinus rhythm Normal ECG When compared with ECG of 23-JUL-2024 12:22, No significant change was found Confirmed by SULTAN MOLINA M.D. ([id number]) on 07/28/2024 5:55:23 PM [facility] 07/26/2024 2:10 PM CDT 07/28/2024 5:55 PM CDT Ari Leslie MD ECG ORDERABLES Final Result [facility] * eGFR (07/26/2024 2:08 PM CDT) eGFR [...] MD LAB BLOOD ORDERABLES Final Resul t [facility] [address] [facility] Department [place] [address] * Differential, auto (07/26/2024 2:08 PM CDT) Neutrophil abs 4.97 1.50 - 6.50 K/cumm Imm gran abs 0.02 0.00 - 0.10 K/cumm [facility] Lymphocyte abs 1.80 0.80 - 3.30 K/cumm [facility] Monocyte abs 0.65 0.20 - 0.80 K/cumm [facility] Eosinophil abs 0.14 0.00 - 0.50 K/cumm [facility] Basophil abs 0.04 0.00 - 0.10 K/cumm [facility] Neutrophil pct 65.3 % [facility] Comment: Interpretive Data Percent cell count reference ranges are not reported, since discordance with absolute values may lead to misinterpretation of CBC data. Current Interpretive Data was last revised on 2017. Imm gran pct 0.3 % [facility] Comment: Interpretive Data Percent cell count reference ranges are not reported, since discordance with absolute values may lead to misinterpretation of CBC data. Current Interpretive Data was last revised on 2017. Lymphocyte pct 23.6 % [facility] Comment: Interpretive Data Percent cell count reference ranges are not reported, since discordance with absolute values may lead to misinterpretation of CBC data. Current Interpretive Data was last revised on 2017. Monocyte pct 8.5 % [facility] Comment: Interpretive Data Percent cell count reference ranges are not reported, since discordance with absolute values may lead to misinterpretation of CBC data. Current Interpretive Data was last revised on 2017. Eosinophil pct 1.8 % [facility] Comment: Interpretive Data Percent cell count reference ranges are not reported, since discordance with absolute values may lead to misinterpretation of CBC data. Current Interpretive Data was last revised on 2017. Basophil pct 0.5 % [facility] Comment: Interpretive Data Percent cell count reference ranges are not reported, since discordance with absolute values may lead to misinterpretation of CBC data. Current Interpretive Data was last revised on 2017. Blood 07/26/2024 2:08 PM CDT 07/26/2024 2:10 PM CDT us Ari Leslie MD LAB BLOOD ORDERABLES Final Resul t [place] [address] [facility] Department [place] [address] * (ABNORMAL) CBC with auto differential (07/26/2024 2:08 PM CDT) WBC 7.62 3.80 - 9.90 K/cumm Hgb 14.0 13.0 - 17.5 g/dL [facility] Hct 39.5 38.9 - 50.3 % [facility] Plt 304 150 - 400 K/cumm [facility] MPV 9.0(L) 9.1 - 12.3 fL [facility] RBC 4.84 4.30 - 5.80 M/cumm [facility] MCV 81.6 81.3 - 96.4 fL [facility] MCH 28.9 27.1 - 33.3 pg [facility] MCHC 35.4 32.3 - 35.7 g/dL [facility] RDW CV 12.2 11.1 - 14.9 % [facility] RDW SD 35.8 35.7 - 48.1 fL [facility] NRBC abs 0.00 0.00 - 0.01 K/cumm [facility] Blood Venous blood specimen / Unknown 07/26/2024 2:08 PM CDT 07/26/2024 2:10 PM CDT us Ari Leslie MD LAB BLOOD ORDERABLES Final Resul t [facility]ABAK [address] [facility] Department [place] [address] * Comprehensive metabolic panel (07/26/2024 2:08 PM CDT) Sodium 136 135 - 145 mmol/L Potassium, pl 3.6 3.3 - 4.9 mmol/L [facility] Chloride 101 97 - 110 mmol/L [facility] CO2 22 22 - 32 mmol/L [facility] Anion gap 13 2 - 15 mmol/L [facility] BUN 11 6 - 25 mg/dL [facility] Creatinine 0.88 0.80 - 1.30 mg/dL [facility] Glucose 106 70 - 199 mg/dL [facility] Comment: Interpretive Data Fasting glucose >/= 126 [...] 2022. Calcium 9.6 8.5 - 10.3 mg/dL [facility] Bilirubin, total 0.5 0.1 - 1.2 mg/dL [facility] Protein, pl 7.2 6.5 - 8.5 g/dL [facility] Albumin 4.7 3.5 - 5.0 g/dL [facility] Alk phos 46 40 - 130 Units/L [facility] ALT 19 7 - 55 Units/L [facility] AST 19 10 - 50 Units/L [facility] Blood 07/26/2024 2:08 PM CDT 07/26/2024 2:10 PM CDT us Ari Leslie MD LAB BLOOD ORDERABLES Final Resul t Performing Organization Address [facility] Co de Phone Number BABAK [facility] [place] [address] * Troponin T high-sensitivity 2-hour (07/23/2024 2:31 PM CDT) Trop T hs See Comment <=22 Comment: Credited due to hemolysis; if immediate recollection is needed, enter an order for a standalone troponin. Do not reorder the troponin series. Informed RN: [id number] 07/23/24 at 1503 by [id number] Interpretive Data For further hscTnT resources including the diagnostic algorithm and an aid in interpretation, copy and paste this link: https://nrl.testcatalog.org/show/hsTrop Current Interpretive Data last revised 2020. Trop T hs interp See Comment BABAK Comment:Credited due to hemo lysis; if immediate recollection is needed, enter an order for a standalone troponin. Do not reorder the troponin series. Informed RN: [id number] 07/23/24 at 1503 by [id number] Blood 07/23/2024 2:31 PM CDT 07/23/2024 2:32 PM CDT Jonelle ASCENCIO LAB BLOOD ORDERABLES Final Re sult Performing Organization Address [facility] Co de Phone Number [place] [phone] [facility] [place] [address] * XR Chest 1 Vw Portable (07/23/2024 [...] Jossie Jimenez D.O. PS T: Report ID: [id number] Reading Location: [id number] Procedure Note Jossie Jimenez, DO - 07/23/2024 [...] Jossie Jimenez D.O. PS T: Report ID: [id number] Reading Location: [id number] us Jonelle ASCENCIO IMG XR PROCEDURES Final [...] ORDERABLES Final Re sult Performing Organization Address [facility] Co de Phone Number BABAK [address] [address] * eGFR (07/23/2024 12:28 PM CDT) Pathologist [facility] eGFR >90 >=60 mL/min/1. 73 m2 Comment: [...] ORDERABLES Final Re sult Performing Organization Address [facility] Co de Phone Number BABAK [address] [place] [address] * (ABNORMAL) Differential, auto (07/23/2024 12:28 PM CDT) Pathologist [facility] Neutrophil abs 4.96 1.50 - 6.50 K/cumm Imm gran abs 0.01 0.00 - 0.10 K/cumm [facility] Lymphocyte abs 1.78 0.80 - 3.30 K/cumm [facility] Monocyte abs 0.85(H) 0.20 - 0.80 K/cumm [facility] Eosinophil abs 0.29 0.00 - 0.50 K/cumm [facility] Basophil abs 0.03 0.00 - 0.10 K/cumm [facility] Neutrophil pct 62.6 % [facility] Comment: Interpretive Data Percent cell count reference ranges are not reported, since discordance with absolute values may lead to misinterpretation of CBC data. Current Interpretive Data was last revised on 2017. Imm gran pct 0.1 % [facility] Comment: Interpretive Data Percent cell count reference ranges are not reported, since discordance with absolute values may lead to misinterpretation of CBC data. Current Interpretive Data was last revised on 2017. Lymphocyte pct 22.5 % [facility] Comment: Interpretive Data Percent cell count reference ranges are not reported, since discordance with absolute values may lead to misinterpretation of CBC data. Current Interpretive Data was last revised on 2017. Monocyte pct 10.7 % [facility] Comment: Interpretive Data Percent cell count reference ranges are not reported, since discordance with absolute values may lead to misinterpretation of CBC data. Current Interpretive Data was last revised on 2017. Eosinophil pct 3.7 % [facility] Comment: Interpretive Data Percent cell count reference ranges are not reported, since discordance with absolute values may lead to misinterpretation of CBC data. Current Interpretive Data was last revised on 2017. Basophil pct 0.4 % [facility] Comment: Interpretive Data Percent cell count reference ranges are not reported, since discordance with absolute values may lead to misinterpretation of CBC data. Current Interpretive Data was last revised on 2017. Blood 07/23/2024 12:2 8 PM CDT 07/23/2024 12:32 PM CDT us Jonelle ASCENCIO LAB BLOOD ORDERABLES Final Re sult [place] [address] [facility] Department [place] [address] * CBC with auto differential (07/23/2024 12:28 PM CDT) WBC 7.92 3.80 - 9.90 K/cumm Hgb 14.6 13.0 - 17.5 g/dL [facility] Hct 42.7 38.9 - 50.3 % [facility] Plt 292 150 - 400 K/cumm [facility] MPV 9.3 9.1 - 12.3 fL [facility] RBC 4.95 4.30 - 5.80 M/cumm [facility] MCV 86.3 81.3 - 96.4 fL [facility] MCH 29.5 27.1 - 33.3 pg [facility] MCHC 34.2 32.3 - 35.7 g/dL [facility] RDW CV 12.4 11.1 - 14.9 % [facility] RDW SD 38.9 35.7 - 48.1 fL [facility] NRBC abs 0.00 0.00 - 0.01 K/cumm [facility] Blood 07/23/2024 12:2 8 PM CDT 07/23/2024 12:32 PM CDT Jonelle Arnel PA LAB BLOOD ORDERABLES Final Re sult Performing Organization Address [facility] Co de Phone Number [address] [place] [address] * Lipase (07/23/2024 12:28 PM CDT) [facility] Lipase 18 10 - 99 Units/L Blood 07/23/2024 12:2 8 PM CDT 07/23/2024 12:32 PM CDT Jonelle Arnel Dat[employer] LAB BLOOD ORDERABLES Final Re sult Performing Organization Address [facility] Co de Phone Number [address] [place] [address] * Comprehensive metabolic panel (07/23/2024 12:28 PM CDT) [facility] Sodium 138 135 - 145 mmol/L Potassium, pl 4.2 3.3 - 4.9 mmol/L [facility] Chloride 104 97 - 110 mmol/L [facility] CO2 24 22 - 32 mmol/L [facility] Anion gap 10 2 - 15 mmol/L [facility] BUN 8 6 - 25 mg/dL [facility] Creatinine 0.80 0.80 - 1.30 mg/dL [facility] Glucose 82 70 - 199 mg/dL [facility] Comment: Interpretive Data Fasting glucose >/= 126 [...] 2022. Calcium 9.1 8.5 - 10.3 mg/dL [facility] Bilirubin, total 0.6 0.1 - 1.2 mg/dL [facility] Protein, pl 6.7 6.5 - 8.5 g/dL [facility] Albumin 4.4 3.5 - 5.0 g/dL [facility] Alk phos 44 40 - 130 Units/L [facility] ALT 16 7 - 55 Units/L [facility] AST 20 10 - 50 Units/L [facility] Blood 07/23/2024 12:2 8 PM CDT 07/23/2024 12:32 PM CDT Jonelle ASCENCIO LAB BLOOD ORDERABLES Final Re sult [facility] [address] [facility] Department [place] [address] * ECG 12 lead (07/23/2024 12:22 PM CDT) Pathologist [facility] Ventricular Rate EKG/Min 55 BPM [facility] Atrial Rate 55 BPM [facility] DE-Interval (MSEC) 164 ms [facility] QRS-Interval (MSEC) 98 ms [facility] QT-Interval (MSEC) 384 ms [facility] QTc 367 ms [facility] P Seadrift 33 degrees [facility] R Seadrift 38 degrees [facility] T Seadrift 49 degrees [facility] Diagnosis Sinus bradycardia Cannot rule out Anterior infarct , age undetermined Abnormal ECG When compared with ECG of 17-JUL-2024 16:40, Minimal criteria for Anterior infarct noted Confirmed by ABDI MANDUJANO M.D. ([id number]) on 07/23/2024 10:54:40 PM [facility] 07/23/2024 12:2 2 PM CDT 07/23/2024 10:54 PM CDT Jonelle ASCENCIO ECG ORDERABLES Final Result [facility] * Troponin T high-sensitivity 2-hour (07/17/2024 7:27 [...] ORDERABL ES Final Result Performing Organization Address City/[facility]/ZIP Co de Phone Number [facility] [address] [facility] Department [place] [address] * XR Chest 1 Vw Portable (if [...] grand-mother administered pt Pepcid approximately 20 mins LENDING MANAGER to ED. Pt is currently c/o 6/10 [...] Sb Acevedo M.D. AG T: Report ID: [id number] Reading Location: [id number] Procedure Note Sb Acevedo MD - 07/17/2024 EXAM DESCRIPTION: XR CHEST 1 VIEW REASON FOR STUDY: chest pain Pt states 3rd ED visit with same complaint. Pt reports intermittent VIDHI chest pain x2 weeks. Pt reports pain increases when laying flat andhard to sleep. Pt notes intake of spicy/greasy foods. Pt grand-mother administered pt Pepcid approximately 20 mins LENDING MANAGER to ED. Pt is currentlyc/o 6/10 pain. [...] Sb Acevedo M.D. AG T: Report ID: [id number] Reading Location: [id number] us Adebowale Tolulade Adesida PA IMG XR PROCEDURES Final Result * Troponin T high-sensitivity series (baseline, 2hr, 4hr, 6hr) (07/17/2024 4:49 PM CDT) Pathologist [facility] Trop T hs 8 <=22 ng/L Comment: Interpretive Data For further hscTnT resources including the diagnostic algorithm and an aid in interpretation, copy and paste this link: https://nrl.testcatalog.org/show/hsTrop Current Interpretive Data last revised 2020. Blood 07/17/2024 4:49 PM CDT 07/17/2024 4:52 PM CDT Bert ASCENCIO LAB BLOOD ORDERABL ES Final Result BABAK [facility] Department [place] [address] * eGFR (07/17/2024 4:49 PM CDT) Pathologist [facility] eGFR >90 >=60 mL/min/1. 73 m2 Comment: [...] ASCENCIO LAB BLOOD ORDERABL ES Final Result [facility] [address] [facility] Department [place] [address] * Differential, auto (07/17/2024 4:49 PM CDT) Neutrophil abs 5.35 1.50 - 6.50 K/cumm Imm gran abs 0.01 0.00 - 0.10 K/cumm [facility] Lymphocyte abs 1.55 0.80 - 3.30 K/cumm [facility] Monocyte abs 0.65 0.20 - 0.80 K/cumm [facility] Eosinophil abs 0.14 0.00 - 0.50 K/cumm [facility] Basophil abs 0.03 0.00 - 0.10 K/cumm [facility] Neutrophil pct 69.2 % [facility] Comment: Interpretive Data Percent cell count reference ranges are not reported, since discordance with absolute values may lead to misinterpretation of CBC data. Current Interpretive Data was last revised on 2017. Imm gran pct 0.1 % [facility] Comment: Interpretive Data Percent cell count reference ranges are not reported, since discordance with absolute values may lead to misinterpretation of CBC data. Current Interpretive Data was last revised on 2017. Lymphocyte pct 20.1 % [facility] Comment: Interpretive Data Percent cell count reference ranges are not reported, since discordance with absolute values may lead to misinterpretation of CBC data. Current Interpretive Data was last revised on 2017. Monocyte pct 8.4 % [facility] Comment: Interpretive Data Percent cell count reference ranges are not reported, since discordance with absolute values may lead to misinterpretation of CBC data. Current Interpretive Data was last revised on 2017. Eosinophil pct 1.8 % [facility] Comment: Interpretive Data Percent cell count reference ranges are not reported, since discordance with absolute values may lead to misinterpretation of CBC data. Current Interpretive Data was last revised on 2017. Basophil pct 0.4 % [facility] Comment: Interpretive Data Percent cell count reference ranges are not reported, since discordance with absolute values may lead to misinterpretation of CBC data. Current Interpretive Data was last revised on 2017. Blood 07/17/2024 4:49 PM CDT 07/17/2024 4:52 PM CDT [facility] Tolulade Rad [facility] LAB BLOOD ORDERABL ES Final Result Performing Organization Address City/[facility]/ZIP Co de Phone Number BABAK [address] [place] [address] * CBC with auto differential (07/17/2024 4:49 PM CDT) WBC 7.73 3.80 - 9.90 K/cumm Hgb 14.6 13.0 - 17.5 g/dL [facility] Hct 41.7 38.9 - 50.3 % [facility] Plt 310 150 - 400 K/cumm [facility] MPV 9.2 9.1 - 12.3 fL [facility] RBC 5.02 4.30 - 5.80 M/cumm [facility] MCV 83.1 81.3 - 96.4 fL [facility] MCH 29.1 27.1 - 33.3 pg [facility] MCHC 35.0 32.3 - 35.7 g/dL [facility] RDW CV 12.4 11.1 - 14.9 % [facility] RDW SD 37.7 35.7 - 48.1 fL [facility] NRBC abs 0.00 0.00 - 0.01 K/cumm [facility] Blood Venous blood specimen / Unknown 07/17/2024 4:49 PM CDT 07/17/2024 4:52 PM CDT Bert Tolulade Lindseyda SONU LAB BLOOD ORDERABL ES Final Result Performing Organization Address City/[facility]/ZIP Co de Phone Number BABAK [address] [place] [address] * Comprehensive metabolic panel (07/17/2024 4:49 PM CDT) Sodium 136 135 - 145 mmol/L Potassium, pl 4.1 3.3 - 4.9 mmol/L [facility] Comment:Hemolyzed; Potassium value may be falsely elevated by as much as 1.0 mmol/L. Suggest redraw and reanalysis. Chloride 102 97 - 110 mmol/L [facility] CO2 22 22 - 32 mmol/L [facility] Anion gap 12 2 - 15 mmol/L [facility] BUN 10 6 - 25 mg/dL [facility] Creatinine 0.80 0.80 - 1.30 mg/dL [facility] Glucose 91 70 - 199 mg/dL [facility] Comment: Interpretive Data Fasting glucose >/= 126 [...] 2022. Calcium 9.9 8.5 - 10.3 mg/dL [facility] Bilirubin, total 0.6 0.1 - 1.2 mg/dL [facility] Protein, pl 7.1 6.5 - 8.5 g/dL [facility] Albumin 4.8 3.5 - 5.0 g/dL [facility] Alk phos 49 40 - 130 Units/L [facility] ALT 18 7 - 55 Units/L [facility] AST See Comment 10 - 50 [facility] Comment:Credited; Hemolyzed Specimen Blood 07/17/2024 4:49 PM CDT 07/17/2024 4:52 PM CDT us Bert [facility] LAB BLOOD ORDERABL ES Final Result BABAK [address] [facility] Department [place] [address] * ECG 12 lead (07/17/2024 4:40 PM CDT) Pathologist [facility] Ventricular Rate EKG/Min 64 BPM [facility] Atrial Rate 64 BPM [facility] DE-Interval (MSEC) 160 ms [facility] QRS-Interval (MSEC) 92 ms [facility] QT-Interval (MSEC) 368 ms [facility] QTc 379 ms [facility] P Seadrift 66 degrees [facility] R Seadrift 27 degrees [facility] T Seadrift 34 degrees [facility] Diagnosis Normal sinus rhythm with sinus arrhythmia Normal ECG When compared with ECG of 11-JUL-2024 12:02, No significant change was found Confirmed by ZACHARY MCCULLOUGH M.D. ([id number]) on 07/18/2024 8:45:54 AM [facility] 07/17/2024 4:40 PM CDT 07/18/2024 8:45 AM CDT us Adebowdwight Merrill Adecezarda PA ECG ORDERABLES Fi nal Result [facility] * XR Chest 1 Vw Portable (07/11/2024 [...] Jossie Jimenez D.O. PS T: Report ID: [id number] Reading Location: [id number] Procedure Note Jimenez Jossie Gutierrez, DO - [...] Jossie Jimenez D.O. PS T: Report ID: [id number] Reading Location: [id number] us Yarely [facility] IMG XR PROCEDURES Final [...] BLOOD ORDERABLES Final Result Performing Organization Address [facility]/ZIP Co de Phone Number BABAK [address] [address] * eGFR (07/11/2024 12:15 PM CDT) [facility] eGFR >90 >=60 mL/min/1. 73 m2 Comment: [...] BLOOD ORDERABLES Final Result Performing Organization Address [facility] Co de Phone Number BABAK [address] [place] [address] * Differential, auto (07/11/2024 12:15 PM CDT) [facility] Neutrophil abs 4.29 1.50 - 6.50 K/cumm Imm gran abs 0.01 0.00 - 0.10 K/cumm [facility] Lymphocyte abs 1.89 0.80 - 3.30 K/cumm [facility] Monocyte abs 0.80 0.20 - 0.80 K/cumm [facility] Eosinophil abs 0.19 0.00 - 0.50 K/cumm [facility] Basophil abs 0.03 0.00 - 0.10 K/cumm [facility] Neutrophil pct 59.6 % [facility] Comment: Interpretive Data Percent cell count reference ranges are not reported, since discordance with absolute values may lead to misinterpretation of CBC data. Current Interpretive Data was last revised on 2017. Imm gran pct 0.1 % [facility] Comment: Interpretive Data Percent cell count reference ranges are not reported, since discordance with absolute values may lead to misinterpretation of CBC data. Current Interpretive Data was last revised on 2017. Lymphocyte pct 26.2 % [facility] Comment: Interpretive Data Percent cell count reference ranges are not reported, since discordance with absolute values may lead to misinterpretation of CBC data. Current Interpretive Data was last revised on 2017. Monocyte pct 11.1 % [facility] Comment: Interpretive Data Percent cell count reference ranges are not reported, since discordance with absolute values may lead to misinterpretation of CBC data. Current Interpretive Data was last revised on 2017. Eosinophil pct 2.6 % [facility] Comment: Interpretive Data Percent cell count reference ranges are not reported, since discordance with absolute values may lead to misinterpretation of CBC data. Current Interpretive Data was last revised on 2017. Basophil pct 0.4 % [facility] Comment: Interpretive Data Percent cell count reference ranges are not reported, since discordance with absolute values may lead to misinterpretation of CBC data. Current Interpretive Data was last revised on 2017. Blood 07/11/2024 12:1 5 PM CDT 07/11/2024 12:17 PM CDT Yarely [facility] LAB BLOOD ORDERABLES Final Result [facility] [address] [facility] Department [place] [address] * (ABNORMAL) CBC with auto differential (07/11/2024 12:15 PM CDT) WBC 7.21 3.80 - 9.90 K/cumm Hgb 14.3 13.0 - 17.5 g/dL [facility] Hct 42.0 38.9 - 50.3 % [facility] Plt 286 150 - 400 K/cumm [facility] MPV 9.0(L) 9.1 - 12.3 fL [facility] RBC 4.96 4.30 - 5.80 M/cumm [facility] MCV 84.7 81.3 - 96.4 fL [facility] MCH 28.8 27.1 - 33.3 pg [facility] MCHC 34.0 32.3 - 35.7 g/dL [facility] RDW CV 12.5 11.1 - 14.9 % [facility] RDW SD 38.1 35.7 - 48.1 fL [facility] NRBC abs 0.00 0.00 - 0.01 K/cumm [facility] Blood 07/11/2024 12:1 5 PM CDT 07/11/2024 12:17 PM CDT Yarely [facility] LAB BLOOD ORDERABLES Final Result [facility] [address] [facility] Department [place] [address] * Comprehensive metabolic panel (07/11/2024 12:15 PM CDT) Sodium 140 135 - 145 mmol/L Potassium, pl 3.8 3.3 - 4.9 mmol/L [facility] Comment:Hemolyzed; Potassium value may be falsely elevated by as much as 1.0 mmol/L. Suggest redraw and reanalysis. Chloride 102 97 - 110 mmol/L [facility] CO2 26 22 - 32 mmol/L [facility] Anion gap 12 2 - 15 mmol/L [facility] BUN 12 6 - 25 mg/dL [facility] Creatinine 0.85 0.80 - 1.30 mg/dL [facility] Glucose 97 70 - 199 mg/dL [facility] Comment: Interpretive Data Fasting glucose >/= 126 [...] 2022. Calcium 9.8 8.5 - 10.3 mg/dL [facility] Bilirubin, total 0.2 0.1 - 1.2 mg/dL [facility] Protein, pl 7.2 6.5 - 8.5 g/dL [facility] Albumin 4.8 3.5 - 5.0 g/dL [facility] Alk phos 51 40 - 130 Units/L [facility] ALT 20 7 - 55 Units/L [facility] AST See Comment 10 - 50 [facility] Comment:Credited; Hemolyzed Specimen Blood 07/11/2024 12:1 5 PM CDT 07/11/2024 12:17 PM CDT Yarely [facility] LAB BLOOD ORDERABLES Final Result Performing Organization Address City/[facility] Co de Phone Number BABAK [address] [facility] Department [place] [address] * ECG 12 lead (07/11/2024 12:02 PM CDT) Ventricular Rate EKG/Min 75 BPM [facility] Atrial Rate 75 BPM [facility] DE-Interval (MSEC) 166 ms [facility] QRS-Interval (MSEC) 96 ms [facility] QT-Interval (MSEC) 340 ms [facility] QTc 379 ms [facility] P Seadrift 61 degrees [facility] R Seadrift 12 degrees [facility] T Seadrift 25 degrees [facility] Diagnosis Normal sinus rhythm Normal ECG No previous ECGs available Confirmed by ABDI MANDUJANO M.D. ([id number]) on 07/11/2024 6:04:25 PM [facility] 07/11/2024 12:0 2 PM CDT 07/11/2024 6:04 PM CDT Yarely [facility] ECG ORDERABLES Final Resu lt [facility] from Last 3 Months Insurance [employer] Care Teams Jive Developer Relationship Specialty Start Date End Date Unknown, Notinfile PCP - General 07/17/23
--- OUTSIDE RECORDS SUMMARY | 2024-08-06 17:47 | XMS_ITS | Clinical Summary ---
Author Organization [place] [id number] [facility] Address [address] [place] [address] Care Team Providers Care Game Producer Name Role Phone Unknown, Notinfile Primary Care [...] Type Department Care Team Description 07/31/2024 Documentation [facility] Social Work [address] [place] [address] [place] [address] Isela Barnes 07/29/2024 2:39 PM CDT - 07/29/2024 3:47 PM CDT Emergency [address] [address] Cervical radiculopathy (Primary Dx); Left arm pain; Paresthesia Discharge Disposition: Discharge to home or self care 07/26/2024 2:48 PM CDT - 07/26/2024 3:39 PM CDT [address] [address] Musculoskeletal pain (Primary Dx) Discharge Disposition: Discharge to home or self care 07/23/2024 11:16 AM CDT - 07/23/2024 4:24 PM CDT [address] [address] Gastroesophageal reflux disease without esophagitis (Primary Dx); Chest wall pain Discharge Disposition: Discharge to home or self care 07/17/2024 7:50 PM CDT - 07/17/2024 8:12 PM CDT [address] [address] Upper abdominal pain (Primary Dx) Discharge Disposition: Discharge to home or self care 07/11/2024 1:43 PM CDT - 07/11/2024 2:19 PM CDT [address] [address] Ariel Hugo MD Chest pain, unspecified type [...] Shawn Dickey M.D., MM T: Report ID: [id number] Reading Location: [id number] Procedure Note Shawn Dickey MD - 07/29/2024 [...] Shawn Dickey M.D., MM T: Report ID: [id number] Reading Location: [id number] us Maxim ASCENCIO IMG XR PROCEDURES Final Resu lt * eGFR (07/29/2024 1:49 PM CDT) Pathologist [facility] eGFR >90 >=60 mL/min/1. 73 m2 Comment: [...] ASCENCIO LAB BLOOD ORDERABL ES Final Result [facility] [address] [facility] Department [place] [address] * Differential, auto (07/29/2024 1:49 PM CDT) [facility] Neutrophil abs 4.26 1.50 - 6.50 K/cumm Imm gran abs 0.01 0.00 - 0.10 K/cumm [facility] Lymphocyte abs 1.56 0.80 - 3.30 K/cumm [facility] Monocyte abs 0.63 0.20 - 0.80 K/cumm [facility] Eosinophil abs 0.16 0.00 - 0.50 K/cumm [facility] Basophil abs 0.02 0.00 - 0.10 K/cumm [facility] Neutrophil pct 64.1 % [facility] Comment: Interpretive Data Percent cell count reference ranges are not reported, since discordance with absolute values may lead to misinterpretation of CBC data. Current Interpretive Data was last revised on 2017. Imm gran pct 0.2 % [facility] Comment: Interpretive Data Percent cell count reference ranges are not reported, since discordance with absolute values may lead to misinterpretation of CBC data. Current Interpretive Data was last revised on 2017. Lymphocyte pct 23.5 % [facility] Comment: Interpretive Data Percent cell count reference ranges are not reported, since discordance with absolute values may lead to misinterpretation of CBC data. Current Interpretive Data was last revised on 2017. Monocyte pct 9.5 % [facility] Comment: Interpretive Data Percent cell count reference ranges are not reported, since discordance with absolute values may lead to misinterpretation of CBC data. Current Interpretive Data was last revised on 2017. Eosinophil pct 2.4 % [facility] Comment: Interpretive Data Percent cell count reference ranges are not reported, since discordance with absolute values may lead to misinterpretation of CBC data. Current Interpretive Data was last revised on 2017. Basophil pct 0.3 % [facility] Comment: Interpretive Data Percent cell count reference ranges are not reported, since discordance with absolute values may lead to misinterpretation of CBC data. Current Interpretive Data was last revised on 2017. Blood 07/29/2024 1:49 PM CDT 07/29/2024 1:53 PM CDT us Bert ASC[facility] LAB BLOOD ORDERABL ES Final Result [facility] [address] [facility] Department of Laboratories [place], [place] [id number] * CBC with auto differential (07/29/2024 1:49 PM CDT) WBC 6.64 3.80 - 9.90 K/cumm Hgb 14.5 13.0 - 17.5 g/dL [facility] Hct 41.5 38.9 - 50.3 % [facility] Plt 296 150 - 400 K/cumm [facility] MPV 9.4 9.1 - 12.3 fL [facility] RBC 4.86 4.30 - 5.80 M/cumm [facility] MCV 85.4 81.3 - 96.4 fL [facility] MCH 29.8 27.1 - 33.3 pg [facility] MCHC 34.9 32.3 - 35.7 g/dL [facility] RDW CV 12.5 11.1 - 14.9 % [facility] RDW SD 38.7 35.7 - 48.1 fL [facility] NRBC abs 0.00 0.00 - 0.01 K/cumm [facility] Blood 07/29/2024 1:49 PM CDT 07/29/2024 1:53 PM CDT Bert [facility] LAB BLOOD ORDERABL ES Final Result [facility] [address] [facility] Department [place] [address] * Comprehensive metabolic panel (07/29/2024 1:49 PM CDT) Sodium 137 135 - 145 mmol/L Potassium, pl 4.2 3.3 - 4.9 mmol/L [facility] Chloride 103 97 - 110 mmol/L [facility] CO2 23 22 - 32 mmol/L [facility] Anion gap 11 2 - 15 mmol/L [facility] BUN 7 6 - 25 mg/dL [facility] Creatinine 0.89 0.80 - 1.30 mg/dL [facility] Glucose 87 70 - 199 mg/dL [facility] Comment: Interpretive Data Fasting glucose >/= 126 [...] 2022. Calcium 9.5 8.5 - 10.3 mg/dL [facility] Bilirubin, total 0.5 0.1 - 1.2 mg/dL [facility] Protein, pl 7.2 6.5 - 8.5 g/dL [facility] Albumin 4.8 3.5 - 5.0 g/dL [facility] Alk phos 50 40 - 130 Units/L [facility] ALT 22 7 - 55 Units/L [facility] AST 20 10 - 50 Units/L [facility] Blood 07/29/2024 1:49 PM CDT 07/29/2024 1:53 PM CDT us Bert [facility] LAB BLOOD ORDERABL ES Final Result [facility] [address] [facility] Department [place] [address] * XR Shoulder Left 2 or More [...] decreased strength to LUE x2 days. 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 Pt [...] Julinadia Roca M.D. TW T: Report ID: [id number] Reading Location: [id number] Procedure Note Juli Roca MD - 07/29/2024 [...] Juli Roca M.D. TW T: Report ID: [id number] Reading Location: [id number] us Rehab Marcell LOPEZ IMG XR PROCEDURES Final Result * ECG 12 lead (07/26/2024 2:10 PM CDT) Ventricular Rate EKG/Min 66 BPM [facility] Atrial Rate 66 BPM [facility] NH-Interval (MSEC) 166 ms [facility] QRS-Interval (MSEC) 100 ms [facility] QT-Interval (MSEC) 370 ms [facility] QTc 387 ms [facility] P [place] 65 degrees [facility] R [place] 26 degrees [facility] T [place] 37 degrees [facility] Diagnosis Normal sinus rhythm Normal ECG When compared with ECG of 23-JUL-2024 12:22, No significant change was found Confirmed by SULTAN MOLINA M.D. ([id number]) on 07/28/2024 5:55:23 PM [facility] 07/26/2024 2:10 PM CDT 07/28/2024 5:55 PM CDT us Ari Leslie MD ECG ORDERABLES Final Result [facility] * eGFR (07/26/2024 2:08 PM CDT) eGFR [...] LAB BLOOD ORDERABLES Final Resul t [facility] [address] [facility] Department [place] [address] * Differential, auto (07/26/2024 2:08 PM CDT) Neutrophil abs 4.97 1.50 - 6.50 K/cumm Imm gran abs 0.02 0.00 - 0.10 K/cumm [facility] Lymphocyte abs 1.80 0.80 - 3.30 K/cumm [facility] Monocyte abs 0.65 0.20 - 0.80 K/cumm [facility] Eosinophil abs 0.14 0.00 - 0.50 K/cumm [facility] Basophil abs 0.04 0.00 - 0.10 K/cumm [facility] Neutrophil pct 65.3 % [facility] Comment: Interpretive Data Percent cell count reference ranges are not reported, since discordance with absolute values may lead to misinterpretation of CBC data. Current Interpretive Data was last revised on 2017. Imm gran pct 0.3 % [facility] Comment: Interpretive Data Percent cell count reference ranges are not reported, since discordance with absolute values may lead to misinterpretation of CBC data. Current Interpretive Data was last revised on 2017. Lymphocyte pct 23.6 % [facility] Comment: Interpretive Data Percent cell count reference ranges are not reported, since discordance with absolute values may lead to misinterpretation of CBC data. Current Interpretive Data was last revised on 2017. Monocyte pct 8.5 % [facility] Comment: Interpretive Data Percent cell count reference ranges are not reported, since discordance with absolute values may lead to misinterpretation of CBC data. Current Interpretive Data was last revised on 2017. Eosinophil pct 1.8 % [facility] Comment: Interpretive Data Percent cell count reference ranges are not reported, since discordance with absolute values may lead to misinterpretation of CBC data. Current Interpretive Data was last revised on 2017. Basophil pct 0.5 % [facility] Comment: Interpretive Data Percent cell count reference ranges are not reported, since discordance with absolute values may lead to misinterpretation of CBC data. Current Interpretive Data was last revised on 2017. Blood 07/26/2024 2:08 PM CDT 07/26/2024 2:10 PM CDT us Ari Leslie MD LAB BLOOD ORDERABLES Final Resul t [facility] [address] [facility] Department [place] [address] * (ABNORMAL) CBC with auto differential (07/26/2024 2:08 PM CDT) [facility] WBC 7.62 3.80 - 9.90 K/cumm Hgb 14.0 13.0 - 17.5 g/dL [facility] Hct 39.5 38.9 - 50.3 % [facility] Plt 304 150 - 400 K/cumm [facility] MPV 9.0(L) 9.1 - 12.3 fL [facility] RBC 4.84 4.30 - 5.80 M/cumm [facility] MCV 81.6 81.3 - 96.4 fL [facility] MCH 28.9 27.1 - 33.3 pg [facility] MCHC 35.4 32.3 - 35.7 g/dL [facility] RDW CV 12.2 11.1 - 14.9 % [facility] RDW SD 35.8 35.7 - 48.1 fL [facility] NRBC abs 0.00 0.00 - 0.01 K/cumm [facility] Blood Venous blood specimen / Unknown 07/26/2024 2:08 PM CDT 07/26/2024 2:10 PM CDT us Ari Leslie MD LAB BLOOD ORDERABLES Final Resul t [facility] [address] [facility] Department [place] [address] * Comprehensive metabolic panel (07/26/2024 2:08 PM CDT) [facility] Sodium 136 135 - 145 mmol/L Potassium, pl 3.6 3.3 - 4.9 mmol/L [facility] Chloride 101 97 - 110 mmol/L [facility] CO2 22 22 - 32 mmol/L [facility] Anion gap 13 2 - 15 mmol/L [facility] BUN 11 6 - 25 mg/dL [facility] Creatinine 0.88 0.80 - 1.30 mg/dL [facility] Glucose 106 70 - 199 mg/dL [facility] Comment: Interpretive Data Fasting glucose >/= 126 [...] 2022. Calcium 9.6 8.5 - 10.3 mg/dL [facility] Bilirubin, total 0.5 0.1 - 1.2 mg/dL [facility] Protein, pl 7.2 6.5 - 8.5 g/dL [facility] Albumin 4.7 3.5 - 5.0 g/dL [facility] Alk phos 46 40 - 130 Units/L [facility] ALT 19 7 - 55 Units/L [facility] AST 19 10 - 50 Units/L [facility] Blood 07/26/2024 2:08 PM CDT 07/26/2024 2:10 PM CDT us Ari Leslie MD LAB BLOOD ORDERABLES Final Resul t [facility] [address] [facility] Department [place] [address] * Troponin T high-sensitivity 2-hour (07/23/2024 2:31 PM CDT) Trop T hs See Comment <=22 Comment: Credited due to hemolysis; if immediate recollection is needed, enter an order for a standalone troponin. Do not reorder the troponin series. Informed RN: LAMBERTO 07/23/24 at 1503 by [id number] Interpretive Data For further hscTnT resources including [...] Informed RN: LAMBERTO 07/23/24 at 1503 by [id number] Blood 07/23/2024 2:31 PM CDT 07/23/2024 2:32 PM CDT us Jonelle ASCENCIO LAB BLOOD ORDERABLES Final Re sult [facility] [address] [facility] Department [place] [address] * XR Chest 1 Vw Portable (07/23/2024 [...] Jossie Jimenez D.O. PS T: Report ID: [id number] Reading Location: [id number] Procedure Note Jossie Jimenez, - 07/23/2024 EXAM [...] signed by Jossie SAMANO T: Report ID: [id number] Reading Location: [place] [address] Jonelle [facility]IO IMG XR PROCEDURES Final Resul [...] ASCENCIO LAB BLOOD ORDERABLES Final Re sult [facility] [address] [facility] Department [place] [address] * eGFR (07/23/2024 12:28 PM [...] ASCENCIO LAB BLOOD ORDERABLES Final Re sult [facility] [address] [facility] Department [place] [address] * (ABNORMAL) Differential, auto (07/23/2024 12:28 PM CDT) Pathologist [facility] Neutrophil abs 4.96 1.50 - 6.50 K/cumm Imm gran abs 0.01 0.00 - 0.10 K/cumm [facility] Lymphocyte abs 1.78 0.80 - 3.30 K/cumm [facility] Monocyte abs 0.85(H) 0.20 - 0.80 K/cumm [facility] Eosinophil abs 0.29 0.00 - 0.50 K/cumm [facility] Basophil abs 0.03 0.00 - 0.10 K/cumm [facility] Neutrophil pct 62.6 % [facility] Comment: Interpretive Data Percent cell count reference ranges are not reported, since discordance with absolute values may lead to misinterpretation of CBC data. Current Interpretive Data was last revised on 2017. Imm gran pct 0.1 % [facility] Comment: Interpretive Data Percent cell count reference ranges are not reported, since discordance with absolute values may lead to misinterpretation of CBC data. Current Interpretive Data was last revised on 2017. Lymphocyte pct 22.5 % [facility] Comment: Interpretive Data Percent cell count reference ranges are not reported, since discordance with absolute values may lead to misinterpretation of CBC data. Current Interpretive Data was last revised on 2017. Monocyte pct 10.7 % [facility] Comment: Interpretive Data Percent cell count reference ranges are not reported, since discordance with absolute values may lead to misinterpretation of CBC data. Current Interpretive Data was last revised on 2017. Eosinophil pct 3.7 % [facility] Comment: Interpretive Data Percent cell count reference ranges are not reported, since discordance with absolute values may lead to misinterpretation of CBC data. Current Interpretive Data was last revised on 2017. Basophil pct 0.4 % [facility] Comment: Interpretive Data Percent cell count reference ranges are not reported, since discordance with absolute values may lead to misinterpretation of CBC data. Current Interpretive Data was last revised on 2017. Blood 07/23/2024 12:2 8 PM CDT 07/23/2024 12:32 PM CDT Jonelle ASC[facility]IO LAB BLOOD ORDERABLES Final Re sult [facility] [address] [facility] Department [place] [address] * CBC with auto differential (07/23/2024 12:28 PM CDT) WBC 7.92 3.80 - 9.90 K/cumm Hgb 14.6 13.0 - 17.5 g/dL [facility] Hct 42.7 38.9 - 50.3 % [facility] Plt 292 150 - 400 K/cumm [facility] MPV 9.3 9.1 - 12.3 fL [facility] RBC 4.95 4.30 - 5.80 M/cumm [facility] MCV 86.3 81.3 - 96.4 fL [facility] MCH 29.5 27.1 - 33.3 pg [facility] MCHC 34.2 32.3 - 35.7 g/dL [facility] RDW CV 12.4 11.1 - 14.9 % [facility] RDW SD 38.9 35.7 - 48.1 fL [facility] NRBC abs 0.00 0.00 - 0.01 K/cumm [facility] Blood 07/23/2024 12:2 8 PM CDT 07/23/2024 12:32 PM CDT Jonelle ASCENCIO LAB BLOOD ORDERABLES Final Re sult Performing Organization Address [facility]/ZIP Co de Phone Number [facility] [address] [place] [address] * Lipase (07/23/2024 12:28 PM CDT) Pathologist [facility] Lipase 18 10 - 99 Units/L Blood 07/23/2024 12:2 8 PM CDT 07/23/2024 12:32 PM CDT Jonelle ASCENCIO LAB BLOOD ORDERABLES Final Re sult Performing Organization Address [facility] Co de Phone Number [facility] [address] [place] [address] * Comprehensive metabolic panel (07/23/2024 12:28 PM CDT) [facility] Sodium 138 135 - 145 mmol/L Potassium, pl 4.2 3.3 - 4.9 mmol/L [facility] Chloride 104 97 - 110 mmol/L [facility] CO2 24 22 - 32 mmol/L [facility] Anion gap 10 2 - 15 mmol/L [facility] BUN 8 6 - 25 mg/dL [facility] Creatinine 0.80 0.80 - 1.30 mg/dL [facility] Glucose 82 70 - 199 mg/dL [facility] Comment: Interpretive Data Fasting glucose >/= 126 [...] 2022. Calcium 9.1 8.5 - 10.3 mg/dL [facility] Bilirubin, total 0.6 0.1 - 1.2 mg/dL [facility] Protein, pl 6.7 6.5 - 8.5 g/dL [facility] Albumin 4.4 3.5 - 5.0 g/dL [facility] Alk phos 44 40 - 130 Units/L [facility] ALT 16 7 - 55 Units/L [facility] AST 20 10 - 50 Units/L [facility] Blood 07/23/2024 12:2 8 PM CDT 07/23/2024 12:32 PM CDT Jonelle ASCENCIO LAB BLOOD ORDERABLES Final Re sult Performing Organization Address City/[facility]/ZIP Co de Phone Number [facility] [address] [facility] Department [place] [address] * ECG 12 lead (07/23/2024 12:22 PM CDT) Ventricular Rate EKG/Min 55 BPM [facility] Atrial Rate 55 BPM [facility] NH-Interval (MSEC) 164 ms [facility] QRS-Interval (MSEC) 98 ms [facility] QT-Interval (MSEC) 384 ms [facility] QTc 367 ms [facility] P [place] 33 degrees [facility] R [place] 38 degrees [facility] T [place] 49 degrees [facility] Diagnosis Sinus bradycardia Cannot rule out Anterior infarct , age undetermined Abnormal ECG When compared with ECG of 17-JUL-2024 16:40, Minimal criteria for Anterior infarct noted Confirmed by ABDI MANDUJANO M.D. ([id number]) on 07/23/2024 10:54:40 PM [facility] 07/23/2024 12:2 2 PM CDT 07/23/2024 10:54 PM CDT Jonelle ASCENCIO ECG ORDERABLES Final Result Performing Organization Address City/[facility]/ZIP Co de Phone Number [facility] * Troponin T high-sensitivity 2-hour (07/17/2024 7:27 [...] LAB BLOOD ORDERABL ES Final Result [facility] [address] [facility] Department [place] [address] * XR Chest 1 Vw Portable (if [...] grand-mother administered pt Pepcid approximately 20 mins 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 Pt is currently c/o 6/10 [...] Sb Acevedo M.D. AG T: Report ID: [id number] Reading Location: [place] [address] Procedure Note Sb Acevedo MD - 07/17/2024 EXAM DESCRIPTION: XR CHEST 1 VIEW REASON FOR STUDY: chest pain Pt states 3rd ED visit with same complaint. Pt reports intermittent VIDHI chest pain x2 weeks. Pt reports pain increases when laying flat andhard to sleep. Pt notes intake of spicy/greasy foods. Pt grand-mother administered pt Pepcid approximately 20 mins 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 Pt is currentlyc/o 6/10 pain. [...] Sb Acevedo M.D. AG T: Report ID: [id number] Reading Location: [id number] Bert ASCENCIO IMG XR PROCEDURES Final Result [...] LAB BLOOD ORDERABL ES Final Result [facility] [address] [facility] Department [place] [address] * eGFR (07/17/2024 4:49 PM CDT) [facility] eGFR >90 >=60 mL/min/1. 73 m2 Comment: [...] ASCENCIO LAB BLOOD ORDERABL ES Final Result [facility] [facility] [address] [facility] Department [place] [address] * Differential, auto (07/17/2024 4:49 PM CDT) [facility] Neutrophil abs 5.35 1.50 - 6.50 K/cumm Imm gran abs 0.01 0.00 - 0.10 K/cumm [facility] Lymphocyte abs 1.55 0.80 - 3.30 K/cumm [facility] Monocyte abs 0.65 0.20 - 0.80 K/cumm [facility] Eosinophil abs 0.14 0.00 - 0.50 K/cumm [facility] Basophil abs 0.03 0.00 - 0.10 K/cumm [facility] Neutrophil pct 69.2 % [facility] Comment: Interpretive Data Percent cell count reference ranges are not reported, since discordance with absolute values may lead to misinterpretation of CBC data. Current Interpretive Data was last revised on 2017. Imm gran pct 0.1 % [facility] Comment: Interpretive Data Percent cell count reference ranges are not reported, since discordance with absolute values may lead to misinterpretation of CBC data. Current Interpretive Data was last revised on 2017. Lymphocyte pct 20.1 % [facility] Comment: Interpretive Data Percent cell count reference ranges are not reported, since discordance with absolute values may lead to misinterpretation of CBC data. Current Interpretive Data was last revised on 2017. Monocyte pct 8.4 % [facility] Comment: Interpretive Data Percent cell count reference ranges are not reported, since discordance with absolute values may lead to misinterpretation of CBC data. Current Interpretive Data was last revised on 2017. Eosinophil pct 1.8 % [facility] Comment: Interpretive Data Percent cell count reference ranges are not reported, since discordance with absolute values may lead to misinterpretation of CBC data. Current Interpretive Data was last revised on 2017. Basophil pct 0.4 % [facility] Comment: Interpretive Data Percent cell count reference ranges are not reported, since discordance with absolute values may lead to misinterpretation of CBC data. Current Interpretive Data was last revised on 2017. Blood 07/17/2024 4:49 PM CDT 07/17/2024 4:52 PM CDT Bert ASCENCIO LAB BLOOD ORDERABL ES Final Result [facility] [address] [facility] Department [place] [address] * CBC with auto differential (07/17/2024 4:49 PM CDT) WBC 7.73 3.80 - 9.90 K/cumm Hgb 14.6 13.0 - 17.5 g/dL [facility] Hct 41.7 38.9 - 50.3 % [facility] Plt 310 150 - 400 K/cumm [facility] MPV 9.2 9.1 - 12.3 fL [facility] RBC 5.02 4.30 - 5.80 M/cumm [facility] MCV 83.1 81.3 - 96.4 fL [facility] MCH 29.1 27.1 - 33.3 pg [facility] MCHC 35.0 32.3 - 35.7 g/dL [facility] RDW CV 12.4 11.1 - 14.9 % [facility] RDW SD 37.7 35.7 - 48.1 fL [facility] NRBC abs 0.00 0.00 - 0.01 K/cumm [facility] Blood Venous blood specimen / Unknown 07/17/2024 4:49 PM CDT 07/17/2024 4:52 PM CDT Bert ASCENCIO LAB BLOOD ORDERABL ES Final Result [facility] [address] [facility] Department [place] [address] * Comprehensive metabolic panel (07/17/2024 4:49 PM CDT) Sodium 136 135 - 145 mmol/L Potassium, pl 4.1 3.3 - 4.9 mmol/L [facility] Comment:Hemolyzed; Potassium value may be falsely elevated by as much as 1.0 mmol/L. Suggest redraw and reanalysis. Chloride 102 97 - 110 mmol/L [facility] CO2 22 22 - 32 mmol/L [facility] Anion gap 12 2 - 15 mmol/L [facility] BUN 10 6 - 25 mg/dL [facility] Creatinine 0.80 0.80 - 1.30 mg/dL [facility] Glucose 91 70 - 199 mg/dL [facility] Comment: Interpretive Data Fasting glucose >/= 126 [...] 2022. Calcium 9.9 8.5 - 10.3 mg/dL [facility] Bilirubin, total 0.6 0.1 - 1.2 mg/dL [facility] Protein, pl 7.1 6.5 - 8.5 g/dL [facility] Albumin 4.8 3.5 - 5.0 g/dL [facility] Alk phos 49 40 - 130 Units/L [facility] ALT 18 7 - 55 Units/L [facility] AST See Comment 10 - 50 [facility] Comment:Credited; Hemolyzed Specimen Blood 07/17/2024 4:49 PM CDT 07/17/2024 4:52 PM CDT Bert [facility] LAB BLOOD ORDERABL ES Final Result [facility] [address] [facility] Department [place] [address] * ECG 12 lead (07/17/2024 4:40 PM CDT) Ventricular Rate EKG/Min 64 BPM [facility] Atrial Rate 64 BPM [facility] NH-Interval (MSEC) 160 ms [facility] QRS-Interval (MSEC) 92 ms [facility] QT-Interval (MSEC) 368 ms [facility] QTc 379 ms [facility] P [place] 66 degrees [facility] R [place] 27 degrees [facility] T [place] 34 degrees [facility] Diagnosis Normal sinus rhythm with sinus arrhythmia Normal ECG When compared with ECG of 11-JUL-2024 12:02, No significant change was found Confirmed by ZACHARY MCCULLOUGH M.D. ([id number]) on 07/18/2024 8:45:54 AM [facility] 07/17/2024 4:40 PM CDT 07/18/2024 8:45 AM CDT Bert [facility] ECG ORDERABLES Fi nal Result Performing Organization Address City/[facility]/ZIP Co de Phone Number [facility] * XR Chest 1 Vw Portable (07/11/2024 [...] Jossie Jimenez D.O. PS T: Report ID: [id number] Reading Location: [id number] Procedure Note Jossie Jimenez, DO - 07/11/2024 [...] signed by Jossie SAMANO T: Report ID: [id number] Reading Location: [id number] Yarely [facility] IMG XR PROCEDURES Final Re [...] [facility] LAB BLOOD ORDERABLES Final Result [facility] [address] [facility] Department [place] [address] * eGFR (07/11/2024 12:15 PM [...] Yarely [facility] LAB BLOOD ORDERABLES Final Result [facility] [address] [facility] Department [place] [address] * Differential, auto (07/11/2024 12:15 PM CDT) Neutrophil abs 4.29 1.50 - 6.50 K/cumm Imm gran abs 0.01 0.00 - 0.10 K/cumm [facility] Lymphocyte abs 1.89 0.80 - 3.30 K/cumm [facility] Monocyte abs 0.80 0.20 - 0.80 K/cumm [facility] Eosinophil abs 0.19 0.00 - 0.50 K/cumm [facility] Basophil abs 0.03 0.00 - 0.10 K/cumm [facility] Neutrophil pct 59.6 % [facility] Comment: Interpretive Data Percent cell count reference ranges are not reported, since discordance with absolute values may lead to misinterpretation of CBC data. Current Interpretive Data was last revised on 2017. Imm gran pct 0.1 % [facility] Comment: Interpretive Data Percent cell count reference ranges are not reported, since discordance with absolute values may lead to misinterpretation of CBC data. Current Interpretive Data was last revised on 2017. Lymphocyte pct 26.2 % [facility] Comment: Interpretive Data Percent cell count reference ranges are not reported, since discordance with absolute values may lead to misinterpretation of CBC data. Current Interpretive Data was last revised on 2017. Monocyte pct 11.1 % [facility] Comment: Interpretive Data Percent cell count reference ranges are not reported, since discordance with absolute values may lead to misinterpretation of CBC data. Current Interpretive Data was last revised on 2017. Eosinophil pct 2.6 % [facility] Comment: Interpretive Data Percent cell count reference ranges are not reported, since discordance with absolute values may lead to misinterpretation of CBC data. Current Interpretive Data was last revised on 2017. Basophil pct 0.4 % [facility] Comment: Interpretive Data Percent cell count reference ranges are not reported, since discordance with absolute values may lead to misinterpretation of CBC data. Current Interpretive Data was last revised on 2017. Blood 07/11/2024 12:1 5 PM CDT 07/11/2024 12:17 PM CDT Yarely [facility] LAB BLOOD ORDERABLES Final Result Performing Organization Address City/[facility] Co de Phone Number [facility] [address] [facility] Department [place] [address] * (ABNORMAL) CBC with auto differential (07/11/2024 12:15 PM CDT) WBC 7.21 3.80 - 9.90 K/cumm Hgb 14.3 13.0 - 17.5 g/dL [facility] Hct 42.0 38.9 - 50.3 % [facility] Plt 286 150 - 400 K/cumm [facility] MPV 9.0(L) 9.1 - 12.3 fL [facility] RBC 4.96 4.30 - 5.80 M/cumm [facility] MCV 84.7 81.3 - 96.4 fL [facility] MCH 28.8 27.1 - 33.3 pg [facility] MCHC 34.0 32.3 - 35.7 g/dL [facility] RDW CV 12.5 11.1 - 14.9 % [facility] RDW SD 38.1 35.7 - 48.1 fL [facility] NRBC abs 0.00 0.00 - 0.01 K/cumm [facility] Blood 07/11/2024 12:1 5 PM CDT 07/11/2024 12:17 PM CDT Yarely [facility] LAB BLOOD ORDERABLES Final Result Performing Organization Address City/[facility] Co de Phone Number [facility] [address] [facility] Department [place] [address] * Comprehensive metabolic panel (07/11/2024 12:15 PM CDT) Sodium 140 135 - 145 mmol/L Potassium, pl 3.8 3.3 - 4.9 mmol/L [facility] Comment:Hemolyzed; Potassium value may be falsely elevated by as much as 1.0 mmol/L. Suggest redraw and reanalysis. Chloride 102 97 - 110 mmol/L [facility] CO2 26 22 - 32 mmol/L [facility] Anion gap 12 2 - 15 mmol/L [facility] BUN 12 6 - 25 mg/dL [facility] Creatinine 0.85 0.80 - 1.30 mg/dL [facility] Glucose 97 70 - 199 mg/dL [facility] Comment: Interpretive Data Fasting glucose >/= 126 [...] 2022. Calcium 9.8 8.5 - 10.3 mg/dL [facility] Bilirubin, total 0.2 0.1 - 1.2 mg/dL [facility] Protein, pl 7.2 6.5 - 8.5 g/dL [facility] Albumin 4.8 3.5 - 5.0 g/dL [facility] Alk phos 51 40 - 130 Units/L [facility] ALT 20 7 - 55 Units/L [facility] AST See Comment 10 - 50 [facility] Comment:Credited; Hemolyzed Specimen Blood 07/11/2024 12:1 5 PM CDT 07/11/2024 12:17 PM CDT Yarely [facility] LAB BLOOD ORDERABLES Final Result Performing Organization Address [facility]/ZIP Co de Phone Number [facility] [address] [facility] Department [place] [address] * ECG 12 lead (07/11/2024 12:02 PM CDT) Ventricular Rate EKG/Min 75 BPM [facility] Atrial Rate 75 BPM [facility] NH-Interval (MSEC) 166 ms [facility] QRS-Interval (MSEC) 96 ms [facility] QT-Interval (MSEC) 340 ms [facility] QTc 379 ms [facility] P [place] 61 degrees [facility] R [place] 12 degrees [facility] T [place] 25 degrees [facility] Diagnosis Normal sinus rhythm Normal ECG No previous ECGs available Confirmed by ABDI MANDUJANO M.D. ([id number]) on 07/11/2024 6:04:25 PM [facility] 07/11/2024 12:0 2 PM CDT 07/11/2024 6:04 PM CDT Yarely [facility] ECG ORDERABLES Final Resu lt Performing Organization Address City/[facility] Co de Phone Number [facility] from Last 3 Months Insurance [id number] Care Teams Game Producer Relationship Specialty Start Date End Date Unknown, Notinfile PCP - General 07/17/23
== END 2024-08-06 16:08 | disposition home or self-care (01) ==
PROVIDERS: Emergency Provider Internal Medicine Critical Care Medicine; PCP Family Medicine
DX: F41.9 Anxiety disorder, unspecified (principal); M94.0 Chondrocostal junction syndrome [Tietze]
CPT/HCPCS: 36415; 71045; 80053; 84484; 85025; 85380; 93005; 99284